=== PATIENT | female | born 1970 | race Caucasian/White ===

== ENCOUNTER 2020-02-08 16:44 | Inpatient (IN) | payer OTHER, SELFPAY ==
[2020-02-08 17:02] VITALS: BP 123/81; PULSE 65; RESP 18; TEMP 36.4; O2SAT 100
[2020-02-08 17:50] VITALS: BP 140/72; PULSE 68; O2SAT 100; BMI 20.7
--- NOTE | 2020-02-08 19:36 | ED_ITS ---
HPI - Psych General Chief Complaint: Psychiatric Symptoms Stated Complaint: crisis Time Seen by Provider: 02/08/20 19:36 Source: patient History of Present Illness HPI Narrative: patient states had suicidal ideations as well as had a recent planned to overdose. Patient states relapsed on alcohol and cocaine over the past weekend and took 4 Ambien however was unsure are unaware when this happened. Patient ER is not drowsy. Denies nausea vomiting diarrhea denies chest pain or abdominal pain Duration: constant Related Data Home Medications Medication Instructions Recorded Confirmed alprazolam 1 mg PO Q6H 02/08/20 02/08/20 baclofen 10 mg PO BID 02/08/20 02/08/20 buspirone 30 mg PO BID 02/08/20 02/08/20 docusate sodium [Stool Softener] 100 mg PO BID 02/08/20 02/08/20 fluoxetine 40 mg PO QAM 02/08/20 02/08/20 lamotrigine 200 mg PO BID 02/08/20 02/08/20 zolpidem 10 mg PO BEDTIME 02/08/20 02/08/20 Allergies Allergy/AdvReac Type Severity Reaction Status Date / Time haloperidol [From HALDOL] Allergy Unknown RASH Verified 02/08/20 17:26 morphine [MORPHINE] Allergy Unknown RASH Verified 02/08/20 20:43 Penicillins [PENICILLINS] Allergy Unknown RASH Verified 02/08/20 20:43 risperidone [From RISPERDAL] Allergy Unknown RASH Verified 02/08/20 20:43 From HALDOL Allergy Unknown RASH Uncoded 01/21/20 17:23 Review of Systems Review of Systems: Constitutional : No Weight loss, No Fever, No Chills, No Night Sweats, No Fatigue, No Malaise ENT/Mouth : No Hearing loss, No Ear Pain, No Nasal Congestion, No Sinus Pain, No Hoarseness, No sore throat, No Rhinorrhea, No Swallowing Difficulty Eyes: No Eye Pain, No Swelling, No Redness, No Foreign Body, No Discharge, No Vision Changes Cardiovascular : No Chest Pain, No SOB, No Dyspnea on Exertion, No Orthopnea, No Edema, No Palpitations Respiratory : No Cough, No Sputum, No Wheezing, No Smoke Exposure, No Dyspnea Gastrointestinal : No Nausea, No Vomiting, No Diarrhea, No Constipation, No abdominal Pain, No Hematochezia, No Melena Genitourinary : no irregular bleeding, No Dysuria, No Urinary Frequency, No Hematuria, No Urinary Incontinence, No Urgency, No Flank Pain, No Urinary Flow Changes, No Hesitancy Musculoskeletal : No joint pain, No Myalgias, No Joint Swelling Skin : No Skin Lesions, No rash Neuro : No Weakness, No Numbness, No Paresthesias, No Loss of Consciousness, No Dizziness, No Headache Psych : No Anxiety/Panic, No Depression, No SI/HI/AH/VH, No Social Issues, Heme/Lymph: No Bruising, No Bleeding,No Lymphadenopathy Endocrine : No Polyuria, No Polydipsia, No Temperature Intolerance FOR[facility], [facility] Past Medical History Medical History Acute Crohn's disease Anxiety Depression Social History Social History Advance Directives: No Advance Directives Information Provided: Yes Physical Exam Vital Signs and I&O and Narrative: Vital Signs and I&O: Vital Signs Temp 97.9 F 02/08/20 21:33 Pulse 82 02/08/20 21:33 Resp 18 02/08/20 21:33 BP 153/83 H 02/08/20 21:33 Pulse Ox 100 02/08/20 21:33 Intake & Output 02/08/20 02/08/20 02/09/20 06:59 18:59 06:59 Weight 54.683 kg Body Mass Index 20.7 vital signs reviewed. Pulse ox 100% room air interpreted by me normal Const: Other: Appearance: Alert. Oriented X3. No acute distress. Eyes: Pupils equal, round and reactive to light. ENT: Pharynx normal. Neck: Normal inspection. Neck supple. CVS: Normal heart rate and rhythm. Pulses normal. Respiratory: No respiratory distress. Breath sounds normal. Abdomen: Soft and nontender. Skin: Skin warm and dry. Normal skin color. Normal skin turgor. Extremities: No lower extremity edema. No lower extremity edema. Neuro: Oriented X 3. No motor deficit. No sensory deficit. Course Course Course Narrative: patient a bed search for crisis MDM - Psych Restraints Face to Face Assessment: Face to Face Assessment: Current Situation: After assessment of the patient, a review of the pertinent medical record and a discussion with nursing staff, I feel the patient requires a restrain intervention. Reaction To: [] Medical Condition: [] Behavioral State: [] Continued Need: [] Lab Data Result diagrams: 02/08/20 20:22 02/08/20 20:22 Labs: Lab Results 02/08/20 02/08/20 02/08/20 Range/Units 20:22 20:22 20:22 WBC 9.5 (4.8-10.8) X10*3/uL RBC 3.88 L (4.20-5.50) X10*6/uL Hgb 9.6 L (12.0-16.0) g/dl Hct 29.9 L (37-47) % MCV 77.1 L (80-98) fL MCH 24.7 L (27.0-33.0) pg MCHC 32.1 (31.0-35.0) g/dl RDW 15.9 (11.0-16.0) % Plt Count 312 (160-400) X10*3/uL MPV 11.5 (9.4-12.3) fL Immature Gran % (Auto) 0.2 (0.0-0.4) % Neut % (Auto) 70.6 (45-73) % Lymph % (Auto) 18.9 L (20-40) % Gaines % (Auto) 8.2 (2-11) % Eos % (Auto) 1.6 (0-4) % Baso % (Auto) 0.5 (0-2) % Neut # (Auto) 6.7 (2.0-8.3) X10*3/uL Lymph # (Auto) 1.8 (1.2-4.9) X10*3/uL Gaines # (Auto) 0.8 (0.1-1.2) X10*3/uL Eos # (Auto) 0.2 (0.0-0.4) X10*3/uL Baso # (Auto) 0.1 (0.0-0.2) X10*3/uL Abs Immat Gran (auto) 0.02 (0.00-0.03) X10*3/uL Absolute Nucleated RBC 0.000 (0.0-0.012) X10*3/uL Nucleated RBC % (auto) 0.0 (0.0-0.2) /100WBC Sodium 137 (135-145) mmol/L Potassium 3.2 L (3.3-5.1) mmol/l Chloride 102 (96-108) mmol/L Carbon Dioxide 27 (22-29) mmol/L Anion Gap 11 L (12-20) BUN 7 L (9-16) mg/dL Creatinine 0.82 (0.5-1.4) mg/dL Estim Creat Clear Calc 71.6 Estimated GFR > 60 Random Glucose 102 (60-115) mg/dL Calcium 8.7 (8.4-10.2) mg/dL Salicylates < 5.0 L (15-30) mg/dL Acetaminophen < 1 (<30) mcg/mL Ethyl Alcohol mg/dL 02/08/20 Range/Units 20:22 WBC (4.8-10.8) X10*3/uL RBC (4.20-5.50) X10*6/uL Hgb (12.0-16.0) g/dl Hct (37-47) % MCV (80-98) fL MCH (27.0-33.0) pg MCHC (31.0-35.0) g/dl RDW (11.0-16.0) % Plt Count (160-400) X10*3/uL MPV (9.4-12.3) fL Immature Gran % (Auto) (0.0-0.4) % Neut % (Auto) (45-73) % Lymph % (Auto) (20-40) % Gaines % (Auto) (2-11) % Eos % (Auto) (0-4) % Baso % (Auto) (0-2) % Neut # (Auto) (2.0-8.3) X10*3/uL Lymph # (Auto) (1.2-4.9) X10*3/uL Gaines # (Auto) (0.1-1.2) X10*3/uL Eos # (Auto) (0.0-0.4) X10*3/uL Baso # (Auto) (0.0-0.2) X10*3/uL Abs Immat Gran (auto) (0.00-0.03) X10*3/uL Absolute Nucleated RBC (0.0-0.012) X10*3/uL Nucleated RBC % (auto) (0.0-0.2) /100WBC Sodium (135-145) mmol/L Potassium (3.3-5.1) mmol/l Chloride (96-108) mmol/L Carbon Dioxide (22-29) mmol/L Anion Gap (12-20) BUN (9-16) mg/dL Creatinine (0.5-1.4) mg/dL Estim Creat Clear Calc Estimated GFR Random Glucose (60-115) mg/dL Calcium (8.4-10.2) mg/dL Salicylates (15-30) mg/dL Acetaminophen (<30) mcg/mL Ethyl Alcohol < 10 mg/dL Discharge Plan Discharge Prescriptions: No Action fluoxetine 40 mg capsule 40 mg PO QAM RF: 0 lamotrigine 200 mg tablet 200 mg PO BID RF: 0 alprazolam 1 mg tablet 1 mg PO Q6H RF: 0 baclofen 10 mg tablet 10 mg PO BID RF: 0 docusate sodium [Stool Softener] 100 mg capsule 100 mg PO BID RF: 0 zolpidem 10 mg tablet 10 mg PO BEDTIME RF: 0 buspirone 15 mg tablet 30 mg PO BID RF: 0
--- NOTE | 2020-02-08 19:49 | PC.NURSE ---
Patient just got seen by provider no new order at this time. Patient in bed calm and quiet in her room. Denied si/hi/avh. Per report patient was seen out in [facility], patient is in-patient bed search and is on section 12. Will continue to monitor.
[2020-02-08 20:28] LABS: MANUAL DIFF FLAG NO
[2020-02-08 20:31] LABS: Basophils Absolute Auto 0.1 X10*3/uL (0.0-0.2); Basophils Percent Auto 0.5 % (0-2); Eosinophils Absolute Auto 0.2 X10*3/uL (0.0-0.4); Eosinophils Percent Auto 1.6 % (0-4); Hematocrit 29.9 % (37-47); Hemoglobin 9.6 g/dl (12.0-16.0); Imm Gran Abs Auto 0.02 X10*3/uL (0.00-0.03); Imm Gran Pct Auto 0.2 % (0.0-0.4); Lymphocytes Absolute Auto 1.8 X10*3/uL (1.2-4.9); Lymphocytes Percent Auto 18.9 % (20-40); Mean Corpuscular HGB Conc 32.1 g/dl (31.0-35.0); Mean Corpuscular Hemoglobin 24.7 pg (27.0-33.0); Mean Corpuscular Volume 77.1 fL (80-98); Mean Platelet Volume 11.5 fL (9.4-12.3); Monocytes Absolute Auto 0.8 X10*3/uL (0.1-1.2); Monocytes Percent Auto 8.2 % (2-11); Neutrophils Absolute Auto 6.7 X10*3/uL (2.0-8.3); Neutrophils Percent Auto 70.6 % (45-73); Platelet Count 312 X10*3/uL (160-400); Red Blood Count 3.88 X10*6/uL (4.20-5.50); Red Cell Distribution Width 15.9 % (11.0-16.0); White Blood Count 9.5 X10*3/uL (4.8-10.8)
[2020-02-08 20:49] LABS: Ethanol < 10 mg/dL
[2020-02-08 20:51] LABS: Anion Gap 11 (12-20); Blood Urea Nitrogen 7 mg/dL (9-16); Calcium 8.7 mg/dL (8.4-10.2); Carbon Dioxide 27 mmol/L (22-29); Chloride 102 mmol/L (96-108); Creatinine Clr Calc Pharmacy 71.6; Estimated Glomerular Filt Rate > 60; Glucose Random 102 mg/dL (60-115); Potassium 3.2 mmol/l (3.3-5.1); Sodium 137 mmol/L (135-145)
[2020-02-08 20:53] LABS: Salicylate < 5.0 mg/dL (15-30)
[2020-02-08] MEDS: ALPRAZolam 0.5 MG TABLET PO (20:58)
[2020-02-08 21:07] LABS: Acetaminophen LAB < 1 mcg/mL (<30)
[2020-02-08 21:33] VITALS: BP 153/83; PULSE 82; RESP 18; TEMP 36.6; O2SAT 100
[2020-02-08] MEDS: Docusate Sodium 100 MG CAPSULE PO (23:05)
[2020-02-08] MEDS: Baclofen 10 MG TABLET PO (23:38)
--- NOTE | 2020-02-08 23:46 | PC.NURSE ---
Patient compliant with her HS PO medication. Denied distress at this time. Out of room for bathroom use and back. Will continue to monitor.
--- NOTE | 2020-02-09 01:39 | PC.NURSE ---
Patient in bed appears sleeping, respiration +/=/non-labored bilaterally. No distress observed/reported. Safety check maintained. Will continue to monitor.
[2020-02-09 02:34] VITALS: BP 132/75; PULSE 78; RESP 16; TEMP 36.4; O2SAT 98
--- NOTE | 2020-02-09 04:44 | PC.NURSE ---
Patient in bed appears sleeping, no distress observed/reported, respiration +/=/non-labored bilaterally. Safety check maintained. Will continue to monitor.
--- NOTE | 2020-02-09 06:29 | PC.NURSE ---
Patient in bed appears sleeping, no distress observed/reported. Respiration +/=/non-labored bilaterally. Will continue to monitor.
--- NOTE | 2020-02-09 06:53 | PC.NURSE ---
Patient just got for bathroom use, provided urine sample for SANTOS, Xanax scheduled at 0400 was administered now to promote patient sleep. Denied distress. will continue to moniro
[2020-02-09 07:55] LABS: Amphetamine Screen Urine Not Detected (Not Detect); Barbiturates, Urine Not Detected (Not Detect); Benzodiazepines Screen Urine POSITIVE (Not Detect); Cannabinoid Screen Urine Not Detected (Not Detect); Cocaine Screen Urine Not Detected (Not Detect); Opiate Screen Urine Not Detected (Not Detect); Phencyclidine Screen Urine Not Detected (Not Detect)
[2020-02-09 08:24] LABS: HCG Quantitative < 2 mIU/mL
[2020-02-09 09:42] VITALS: BP 113/55; PULSE 74; RESP 18; TEMP 36.9; O2SAT 99
--- NOTE | 2020-02-09 10:53 | PC.NURSE ---
Berna from [facility] speaking on phone to pt regarding pts pets at home. pt calm and cooperative
[2020-02-09] MEDS: Docusate Sodium 100 MG CAPSULE PO (11:38)
[2020-02-09] MEDS: FLUoxetine HCl 20 MG CAPSULE 40 MG PO (11:38)
[2020-02-09] MEDS: Baclofen 10 MG TABLET PO (11:38)
--- NOTE | 2020-02-09 14:47 | PC.NURSE ---
Nurse to nurse given to M5
[2020-02-09 14:54] LABS: SARS COV2 PCR INHOUSE Negative (Negative)
[2020-02-09 15:45] VITALS: BP 128/79; PULSE 73; RESP 15; TEMP 36.9; O2SAT 98
--- NOTE | 2020-02-09 16:41 | PC.NURSE ---
PT TRANSFERRED TO M5, CALM AND COOPERATIVE, SECURITY PRESENT TO BRING PT TO M5
--- NOTE | 2020-02-09 18:07 | PC.NURSE ---
AWAITING TRANSFER ORDERS TO M5 TO BE INPUTTED BY ADMITTING MD. FLOOR AWARE. PT LEFT ED AT 1630.
[2020-02-09 20:00] VITALS: BP 117/68; PULSE 78; RESP 18; TEMP 36.4; O2SAT 100
--- NOTE | 2020-02-09 21:24 | PC.ADMIT ---
PT arrived on unit at 16:35. PT is a 49 year old single woman [place] speaking. Presented to M5 from [facility] on a CV status. PT is Covid negative. Tox screen postive for benzo. PT was assessed by [facility] Crisis at her home due to concern over pts' relapse on cocaine and alcohol, misuse of prescription medication, increased depression and resurgence of eating disorder and overall decompensation. PT reportedly had a SI plan to overdose on medication,but denied any SI,AH/VH or pain on admit. DR Polanco called for orders and notified of admission. PT on 15 min safety checks. Pleasant and cooperative on admit. PT had clear thoughts, stable mood. Pt had a dressing change on LT upper shoulder during admit from rotator cuff surgery. Dressing should be assessed and treated daily while on M5.PT has a port access on her RT upper chest only used for medication for her Crohn's disease. PT verbalized she has her sister Delia as a support system; by report pt has a lengthy history of mental health substance use and eating disorder treatments, has a team of providers through [facility] and [facility]. Start treatment plan and monitor for safety
[2020-02-09 22:00] VITALS: BP 127/60; PULSE 72; RESP 18; TEMP 36; O2SAT 98
[2020-02-09] MEDS: Zolpidem Tartrate 5 MG TABLET PO (22:41)
[2020-02-10] MEDS: traZODone HCL 50 MG TABLET PO (00:07)
[2020-02-10] MEDS: hydrOXYzine HCL 25 MG TABLET PO (00:08)
[2020-02-10 05:50] VITALS: BP 142/60; PULSE 58; RESP 16; TEMP 36.8
[2020-02-10] MEDS: FLUoxetine HCl 20 MG CAPSULE 40 MG PO (08:52)
[2020-02-10] MEDS: ALPRAZolam 0.5 MG TABLET 1 MG PO ×3 (08:53→21:22)
[2020-02-10] MEDS: busPIRone HCl 10 MG TABLET 30 MG PO ×2 (08:53→21:22)
[2020-02-10] MEDS: Baclofen 10 MG TABLET PO ×2 (08:54→21:21)
[2020-02-10] MEDS: lamoTRIgine 100 MG TABLET 200 MG PO ×2 (08:55→21:22)
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
[2020-02-10 21:20] LABS: Alanine Aminotransferase 9 U/L (0-31); Albumin Level 3.8 g/dL (3.5-5.0); Alkaline Phosphatase 89 U/L (39-117); Anion Gap 12 (12-20); Aspartate Amino Transferase 13 U/L (5-31); Bilirubin Total 0.2 mg/dL (0.0-1.0); Blood Urea Nitrogen 12 mg/dL (9-16); Calcium 8.8 mg/dL (8.4-10.2); Carbon Dioxide 32 mmol/L (22-29); Chloride 97 mmol/L (96-108); Cholesterol 164 mg/dL; Creatinine Clr Calc Pharmacy 69.1; Estimated Glomerular Filt Rate > 60; Glucose Random 86 mg/dL (60-115); HDL Cholesterol 64 mg/dL; LDL Cholesterol Calculated 78 mg/dl; Potassium 3.5 mmol/l (3.3-5.1); Sodium 137 mmol/L (135-145); Total Protein 7.3 g/dL (6.5-8.0); Triglycerides 114 mg/dL
[2020-02-10] MEDS: Zolpidem Tartrate 5 MG TABLET 10 MG PO (21:22)
[2020-02-10 21:26] LABS: Reflex LDLD? No
[2020-02-10 21:36] VITALS: BP 120/74; PULSE 63; TEMP 36.7
[2020-02-10 21:39] LABS: TSH reflex Free T4 0.91 mIU/mL (0.32-4.0)
--- NOTE | 2020-02-11 | US_ITS ---
EXAMINATION: ULTRASOUND EXTREMITY NONVASCULAR CLINICAL INFORMATION: History of rotator cuff surgery 2019 with lump anterior limb drainage. Evaluate for abscess. COMPARISON: None TECHNIQUE: Grayscale and color imaging of the soft tissues of the left shoulder using a linear and curved transducer FINDINGS: There is a complex collection just deep to the skin in the left shoulder that measures 9.5 x 7.2 x 4.3 cm in dimension. This demonstrates increased vascularity. This has the largest solid-appearing echogenic component. This also has a thin curvilinear echogenic component with dirty shadowing questionable for air. It is difficult to exclude a soft tissue foreign body. IMPRESSION: Complex collection over the left shoulder just deep to the skin measuring 9.5 x 7.2 x 4.3 cm. This has a large solid echogenic component and thin linear echogenic component with dirty shadowing questionable for air. It is difficult to exclude a soft tissue foreign body. Correlation with x-ray or CT scan is recommended.
[2020-02-11] MEDS: traZODone HCL 50 MG TABLET PO ×2 (00:33→23:35)
[2020-02-11] MEDS: hydrOXYzine HCL 25 MG TABLET PO (00:33)
[2020-02-11 07:00] VITALS: BP 121/58; PULSE 63; RESP 14; TEMP 36.3; O2SAT 98; BMI 16.9
[2020-02-11] MEDS: Baclofen 10 MG TABLET PO ×2 (08:43→21:42)
[2020-02-11] MEDS: ALPRAZolam 0.5 MG TABLET 1 MG PO ×4 (08:43→21:42)
[2020-02-11] MEDS: FLUoxetine HCl 20 MG CAPSULE 40 MG PO (08:43)
[2020-02-11] MEDS: busPIRone HCl 10 MG TABLET 30 MG PO ×2 (08:43→21:42)
[2020-02-11] MEDS: lamoTRIgine 100 MG TABLET 200 MG PO ×2 (08:43→21:42)
[2020-02-11 09:24] LABS: Folate 10.6 ng/mL (> or = 4.0); Vitamin B12 211 pg/mL (200-900)
--- NOTE | 2020-02-11 10:33 | P.CONIM_ITS ---
History of Present Illness Data of Consult Service Date: 02/11/20 <MELISSA Gauthier - Last Filed: 02/11/20 11:18> Requesting physician: Artie Vargas <MELISSA Gauthier - Last Filed: 02/11/20 11:18> Primary Care Provider: Sveta Matthew NP <MELISSA Gauthier - Last Filed: 02/11/20 11:18> HPI Reason for consult: Drainage from left shoulder <MELISSA Gauthier - Last Filed: 02/11/20 11:18> This is a 49-year-old female admitted to for management of depression, anxiety and relapse of alcohol and cocaine. She underwent left rotator cuff repair in 2018 and has had several subsequent surgeries since (detailed below). the hospitalists were asked to see her in consultation for drainage of her left shoulder wound. She has had persistent purulent drainage from her left shoulder which has not changed in consistency. She reports ongoing decreased range of motion and pain. She denies any associated fever or chills. she has had daily dressing changes prior to hospitalization by visiting nurses. --Left shoulder infections recently diagnosed with MSSA, s/p 6-week course of cefazolin. She initially underwent left shoulder rotator cuff repair in 02/2019, developed MRSA infection 03/24 which she underwent debridement and hardware removal. She was initially treated with oral Bactrim and rifampin, but then admitted and started on IV vancomycin. She was given 4-week of vancomycin. She underwent rotator cuff repair on 08/17/19, but developed anterior deltoid failure requiring another repair on 11/09/19. She was admitted [place] [facility] [place] to 12/06 with purulent drainage and erythema of the operative site. Wound cultures grew out MSSA and she underwent I&D with removal of all indwelling sutures on 12/03. Operative cultures were negative and then she was on cefazolin at the time. She was ultimately discharged on a planned 6-week course of IV cefazolin to end on 01/14. She returned to hospital with ongoing shoulder pain, no improvement since her discharge. She continued to have drainage which appears to be purulent in nature. The patient did seek a second opinion from a surgeon in [place] who told her that she needed to follow up with ID again. She Underwent orthocentesis, Seen by ID and ortho and cultures have remained negative, completed ANCEF recently, ID recommended vancomycin in the hospital and 2-4 week course of doxycycline while awaiting results of 16 S ribosomal PCR. Rec to follow up with ID clinic and instructed not to take her immunomodulatory agents for crohn's. <MELISSA Gauthier - Last Filed: 02/11/20 11:18> Review of Systems Review of Systems: Yes all other systems are reviewed and are negative <MELISSA Gauthier - Last Filed: 02/11/20 11:18> Constitutional: Constitutional: Denies chills and Denies fever(s) <MELISSA Gauthier - Last Filed: 02/11/20 11:18> Cardiovascular: Cardiovascular: Denies chest pain <MELISSA Gauthier - Last Filed: 02/11/20 11:18> Respiratory: Respiratory: Denies cough <MELISSA Gauthier - Last Filed: 02/11/20 11:18> Gastrointestinal: Gastrointestinal: Denies abdominal pain <MELISSA Gauthier - Last Filed: 02/11/20 11:18> FOR[facility]LY [facility] Medical History: Medical History Acute Crohn's disease Alcohol use disorder Anemia Anorexia nervosa with bulimia Anxiety Cocaine use disorder, mild, abuse Crohn disease Depression Major depressive disorder, recurrent, severe w/o psychotic behavior Major depressive disorder, recurrent, severe with psychotic features PTSD (post-traumatic stress disorder) Shoulder abscess <MELISSA Gauthier - Last Filed: 02/11/20 11:18> Functional capacity: independent ambulation <MELISSA Gauthier - Last Filed: 02/11/20 11:18> Family history: reviewed and not pertinent <MELISSA Gauthier - Last Filed: 02/11/20 11:18> Surgical History: Surgical History S/P left rotator cuff repair <MELISSA Gauthier Last Filed: 02/11/20 11:18> Social History: Social History Household Members: None Housing: Apartment Do you presently have visiting nurse or other home services: Yes ( Yes for my dressing on LT shoulder) Smoking Status: Never smoker Smoked in Last 30 Days: No Use of substances other than those prescribed or required for medical reasons: Yes Substance Use Type: Crack/Cocaine Substance Use Frequency: Occasionally Last Used Substance: Just Prior to Admission Currently Displaying Signs/Symptoms of Drug Intoxication Withdrawal: No Any prior treatment program specific to substance use: Yes ( Treatment center in [facility] ) Have you been hit, kicked, punched, or otherwise hurt by someone within the past year? If so, by whom?: No Do you feel safe in your current relationship?: No Current Relationship Is there a partner from a previous relationship who is making you feel unsafe now?: No Are you made to feel afraid or neglected: No [facility] Practices: [facility] I would like a visit from a auto radio mechanic Advance Directives: Yes ( my sister Delia ) Advance Directives Information Provided: No ( somewhere the information is signed ) Advance Directives on File: No Do you have thoughts of harming others: None Do you have a plan to hurt others: No Plan Recently lost weight without trying: No service: No Sexual orientation: Straight/Heterosexual <MELISSA Gauthier - Last Filed: 02/11/20 11:18> Meds Allergies/Adverse reactions: Allergies Allergy/AdvReac Type Severity Reaction Status Date / Time haloperidol [From HALDOL] Allergy Unknown RASH Verified 02/08/20 17:26 morphine [MORPHINE] Allergy Unknown RASH Verified 02/08/20 20:43 Penicillins [PENICILLINS] Allergy Unknown RASH Verified 02/08/20 20:43 risperidone [From RISPERDAL] Allergy Unknown RASH Verified 02/08/20 20:43 From HALDOL Allergy Unknown RASH Uncoded 01/21/20 17:23 <MELISSA Gauthier - Last Filed: 02/11/20 11:18> Home medications: Home Medications Medication Instructions Recorded Confirmed Type alprazolam 1 mg PO Q6H 02/08/20 02/08/20 History baclofen 10 mg PO BID 02/08/20 02/08/20 History buspirone 30 mg PO BID 02/08/20 02/08/20 History docusate sodium [Stool Softener] 100 mg PO BID 02/08/20 02/08/20 History fluoxetine 40 mg PO QAM 02/08/20 02/08/20 History lamotrigine 200 mg PO BID 02/08/20 02/08/20 History zolpidem 10 mg PO BEDTIME 02/08/20 02/08/20 History <MELISSA Gauthier - Last Filed: 02/11/20 11:18> Physical Exam Vital Signs and Narrative: Vital Signs: Last Vital Signs Temp 97.4 F 02/11/20 07:00 Pulse 63 02/11/20 07:00 Resp 14 02/11/20 07:00 BP 121/58 L 02/11/20 07:00 Pulse Ox 98 02/11/20 07:00 Body Mass Index 16.9 <MELISSA Gauthier - Last Filed: 02/11/20 11:18> Const: Nutritional Appearance: well nourished <MELISSA Gauthier Last Filed: 02/11/20 11:18> Orientation/consciousness: patient oriented x3 <MELISSA Gauthier - Last Filed: 02/11/20 11:18> HENMT: Head: Yes normocephalic and Yes atraumatic <MELISSA Gauthier - Last Filed: 02/11/20 11:18> Eyes: Sclerae: sclerae normal <MELISSA Gauthier - Last Filed: 02/11/20 11:18> Resp: Effort & Inspection: normal respiratory effort and no respiratory distress <MELISSA Gauthier - Last Filed: 02/11/20 11:18> Auscultation: clear to auscultation bilaterally <MELISSA Gauthier Last Filed: 02/11/20 11:18> Cardio: Rate: regular rate <MELISSA Gauthier Last Filed: 02/11/20 11:18> Rhythm: regular rhythm <MELISSA Gauthier - Last Filed: 02/11/20 11:18> Neuro: General: patient oriented x3 <MELISSA Gauthier Last Filed: 02/11/20 11:18> Cranial nerves: Yes CN's II-XII intact bilaterally and Yes Bilaterally intact EOM present <MELISSA Gauthier - Last Filed: 02/11/20 11:18> Extrem: Left upper extremity: shoulder/upper arm (area of fluctuance) Details: abnormal to inspection (healing incision left shoulder, no erythema, no drainage expressed), tenderness and abnormal ROM; no unsual warmth <MELISSA Gauthier - Last Filed: 02/11/20 11:18> Results Labs Labs: Laboratory Tests 02/08/20 02/08/20 02/08/20 20:22 20:22 20:22 WBC 9.5 RBC 3.88 L Hgb 9.6 L Hct 29.9 L MCV 77.1 L MCH 24.7 L MCHC 32.1 RDW 15.9 Plt Count 312 MPV 11.5 Immature Gran % (Auto) 0.2 Neut % (Auto) 70.6 Lymph % (Auto) 18.9 L [place] % (Auto) 8.2 Eos % (Auto) 1.6 Baso % (Auto) 0.5 Neut # (Auto) 6.7 Lymph # (Auto) 1.8 [place] # (Auto) 0.8 Eos # (Auto) 0.2 Baso # (Auto) 0.1 Abs Immat Gran (auto) 0.02 Absolute Nucleated RBC 0.000 Nucleated RBC % (auto) 0.0 Sodium 137 Potassium 3.2 L Chloride 102 Carbon Dioxide 27 Anion Gap 11 L BUN 7 L Creatinine 0.82 Estim Creat Clear Calc 71.6 Estimated GFR > 60 Random Glucose 102 Calcium 8.7 Total Bilirubin AST ALT Alkaline Phosphatase Total Protein Albumin Triglycerides Cholesterol LDL Cholesterol, Calc HDL Cholesterol Vitamin B12 Folate TSH Beta HCG, Quant Salicylates < 5.0 L Urine Opiates Screen Acetaminophen < 1 Ur Barbiturates Screen Ur Phencyclidine Scrn Ur Amphetamines Screen U Benzodiazepines Scrn Urine Cocaine Screen U Marijuana (THC) Screen Ethyl Alcohol Coronavirus (PCR) 02/08/20 02/09/20 02/09/20 20:22 07:09 07:32 WBC RBC Hgb Hct MCV MCH MCHC RDW Plt Count MPV Immature Gran % (Auto) Neut % (Auto) Lymph % (Auto) [place] % (Auto) Eos % (Auto) Baso % (Auto) Neut # (Auto) Lymph # (Auto) [place] # (Auto) Eos # (Auto) Baso # (Auto) Abs Immat Gran (auto) Absolute Nucleated RBC Nucleated RBC % (auto) Sodium Potassium Chloride Carbon Dioxide Anion Gap BUN Creatinine Estim Creat Clear Calc Estimated GFR Random Glucose Calcium Total Bilirubin AST ALT Alkaline Phosphatase Total Protein Albumin Triglycerides Cholesterol LDL Cholesterol, Calc HDL Cholesterol Vitamin B12 Folate TSH Beta HCG, Quant < 2 Salicylates Urine Opiates Screen Not Detected Acetaminophen Ur Barbiturates Screen Not Detected Ur Phencyclidine Scrn Not Detected Ur Amphetamines Screen Not Detected U Benzodiazepines Scrn POSITIVE H Urine Cocaine Screen Not Detected U Marijuana (THC) Screen Not Detected Ethyl Alcohol < 10 Coronavirus (PCR) 02/09/20 02/10/20 02/10/20 13:10 20:22 20:22 WBC RBC Hgb Hct MCV MCH MCHC RDW Plt Count MPV Immature Gran % (Auto) Neut % (Auto) Lymph % (Auto) [place] % (Auto) Eos % (Auto) Baso % (Auto) Neut # (Auto) Lymph # (Auto) [place] # (Auto) Eos # (Auto) Baso # (Auto) Abs Immat Gran (auto) Absolute Nucleated RBC Nucleated RBC % (auto) Sodium 137 Potassium 3.5 Chloride 97 Carbon Dioxide 32 H Anion Gap 12 BUN 12 D Creatinine 0.85 Estim Creat Clear Calc 69.1 Estimated GFR > 60 Random Glucose 86 Calcium 8.8 Total Bilirubin 0.2 AST 13 ALT 9 Alkaline Phosphatase 89 Total Protein 7.3 Albumin 3.8 Triglycerides 114 Cholesterol 164 LDL Cholesterol, Calc 78 HDL Cholesterol 64 Vitamin B12 211 Folate 10.6 TSH 0.91 Beta HCG, Quant Salicylates Urine Opiates Screen Acetaminophen Ur Barbiturates Screen Ur Phencyclidine Scrn Ur Amphetamines Screen U Benzodiazepines Scrn Urine Cocaine Screen U Marijuana (THC) Screen Ethyl Alcohol Coronavirus (PCR) Negative <MELISSA Gauthier - Last Filed: 02/11/20 11:18> Assessment and Plan (1) S/P left rotator cuff repair: Status: Acute <MELISSA Gauthier - Last Filed: 02/11/20 11:18> this is a 49-year-old female admitted to for management of depression, anxiety and relapse of alcohol and cocaine. s/p left rotator cuff repair with h/o MSSA infection with chronic purulent tari inage chronic since recent surgery and seems unchanged. has completed antibiotics. no leukocytosis or fever remicaide (for Crohn's)has been on hold overall wound appears to be healing well with no surrounding erythema. There was purulence drainage on her bandage which she states has been persistent since recent surgery. No drainage was able to be expressed from the wound. however there is an area of fluctuance on the top of her shoulder. the patient states that this is not new. likely does not represent abscess given lack of white count, fever or erythema. However given h/o recurrent infection will obtain soft tissue ultrasound to evaluate. further management based on results. pain management with Tylenol as she would like to avoid narcotics and NSAIDs if possible. thank you for allowing us to participate in the care of this patient. This case was discussed with Dr. Randolph <MELISSA Gauthier - Last Filed: 02/11/20 11:18>
[2020-02-11] MEDS: Acetaminophen 325 MG TABLET 650 MG PO (10:40)
--- NOTE | 2020-02-11 10:48 | HO.PSYCHPN ---
Subjective Subjective Reason For Visit: patient admitted increasingly depressed OD Subjective Notes: Conditional Voluntary Interim History: Pt feels quite depressed anxious depressed . having belly pain diarrehea empty difficult relationship with mother feels shame over relapse ruminating on loss of father has been off remicade agreeable to taking Abilify again asking for Benadryl IM that she states is helpful for pain Mental Status Exam Mental Status Exam Narrative: patient id isolative sad depressed somewhat disheveled Patient Appearance: Disheveled Patient Orientation: Person, Place and Time Level of Consciousness: Awake Patient Behavior: Appropriate and Good Eye Contact Mood Description: Anxious and Apprehensive Affect Description: Depressed, Anxious, Blunted and Sad Patient Cognition Impaired: No Ability to Follow Directions: Good Speech Pattern: Clear Memory Description: Recent Impaired ( has blackout) Hallucinations: None Delusions: Not Present Thought Process: Intact Thought Content: positive for Goal Oriented Depressive Symptoms: Increased Anxiety, Insomnia, Increased Irritability, Crying Spells, Feelings of Worthlessness, Hopelessness, Feelings of Guilt, Increased Fatigue and Thoughts of /Suicide ( denies active suicidal thoughts) Judgement: Fair Judgement and Insight: patient apparently has been misusing her prescribed medication not being fully honest with her outpatient team Diagnostics Vital Signs (24Hr): Vital Signs - 24 hr 02/10/20 21:36 02/11/20 07:00 Temperature 98.0 F 97.4 F Pulse Rate 63 63 Respiratory Rate 14 Blood Pressure 120/74 121/58 L Pulse Oximetry 98 Body Mass Index 16.9 Labs Results: 02/08/20 20:22 02/10/20 20:22 Labs: Laboratory Results - last 48 hr 02/09/20 02/10/20 02/10/20 13:10 20:22 20:22 Sodium 137 Potassium 3.5 Chloride 97 Carbon Dioxide 32 H Anion Gap 12 BUN 12 D Creatinine 0.85 Estim Creat Clear Calc 69.1 Estimated GFR > 60 Random Glucose 86 Calcium 8.8 Total Bilirubin 0.2 AST 13 ALT 9 Alkaline Phosphatase 89 Total Protein 7.3 Albumin 3.8 Triglycerides 114 Cholesterol 164 LDL Cholesterol, Calc 78 HDL Cholesterol 64 Vitamin B12 211 Folate 10.6 TSH 0.91 Coronavirus (PCR) Negative Medications Medications Current Medications Generic Name Dose Route Start Last Admin Trade Name Freq PRN Reason Stop Dose Admin Acetaminophen 650 mg 02/09/20 21:51 02/11/20 10:40 Acetaminophen 325 Mg Tablet PO 650 mg Q6H PRN Administration Headache/Pain Mild Scale (1-3) Al Hydroxide/Mg Hydroxide 30 ml 02/09/20 21:51 Magnesium Hydrox/Alum Hydrox 30 Ml Oral.Susp PO Q6H PRN Heartburn/Nausea Alprazolam 1 mg 02/10/20 21:00 02/11/20 08:43 Alprazolam 0.5 Mg Tablet PO 1 mg TID MARGARITA Administration Baclofen 10 mg 02/08/20 23:30 02/11/20 08:43 Baclofen 10 Mg Tablet PO 10 mg BID MARGARITA Administration Buspirone HCl 30 mg 02/10/20 09:00 02/11/20 08:43 Buspirone Hcl 10 Mg Tablet PO 30 mg BID MARGARITA Administration Docusate Sodium 100 mg 02/09/20 09:00 02/11/20 08:43 Docusate Sodium 100 Mg Capsule PO Not Given BID MARGARITA Fluoxetine HCl 40 mg 02/09/20 09:00 02/11/20 08:43 Fluoxetine Hcl 20 Mg Capsule PO 40 mg DAILY MARGARITA Administration Hydroxyzine HCl 25 mg 02/09/20 21:51 02/11/20 00:33 Hydroxyzine Hcl 25 Mg Tablet PO 25 mg BEDTIME PRN Administration Anxiety Lamotrigine 200 mg 02/10/20 09:00 02/11/20 08:43 Lamotrigine 100 Mg Tablet PO 200 mg BID MARGARITA Administration Magnesium Hydroxide 30 ml 02/09/20 21:51 Milk Of Magnesia 30 Ml Oral.Susp PO DAILY PRN Constipation Trazodone HCl 50 mg 02/09/20 21:51 02/11/20 00:33 Trazodone Hcl 50 Mg Tablet PO 50 mg BEDTIME PRN Administration Insomnia Zolpidem Tartrate 10 mg 02/10/20 21:00 02/10/20 21:22 Zolpidem Tartrate 5 Mg Tablet PO 10 mg BEDTIME MARGARITA Administration Allergies Allergies Allergy/AdvReac Type Severity Reaction Status Date / Time haloperidol [From HALDOL] Allergy Unknown RASH Verified 02/08/20 17:26 morphine [MORPHINE] Allergy Unknown RASH Verified 02/08/20 20:43 Penicillins [PENICILLINS] Allergy Unknown RASH Verified 02/08/20 20:43 risperidone [From RISPERDAL] Allergy Unknown RASH Verified 02/08/20 20:43 From HALDOL Allergy Unknown RASH Uncoded 01/21/20 17:23 Assessment & Plan Assessment & Plan (1) S/P left rotator cuff repair: Status: Acute Code(s): Z98.890 - Other specified postprocedural states (2) PTSD (post-traumatic stress disorder): Status: Acute Code(s): F43.10 - Post-traumatic stress disorder, unspecified (3) Cocaine use disorder, mild, abuse: Status: Acute Code(s): F14.10 - Cocaine abuse, uncomplicated (4) Alcohol use disorder: Status: Acute (5) Anorexia nervosa with bulimia: Status: Acute Code(s): F50.02 - Anorexia nervosa, binge eating/purging type (6) Crohn disease: Status: Acute Code(s): K50.90 - Crohn's disease, unspecified, without complications (7) Major depression: Qualifiers: Active/Remission status: currently active Status: Acute Code(s): F32.9 - Major depressive disorder, single episode, unspecified Assessment and Plan: patient admitted to Psychiatry secondary to depression and in the context of relapse with substance abuse. Patient agreeable to restarting Abilify 2 mg increase as tolerated. Continue Prozac and BuSpar. Patient demoralized medical consultation reviewed no acute findings noted. Patient complaining of GI symptoms abdominal pain diarrhea contributing to depression. She has been S to put her immune modulating agents for Crohn's disease on hold medical consult reviewed Greater than 50% of the session was spent on counseling and/or coordination of care
[2020-02-11 13:00] VITALS: BP 114/73; PULSE 75; TEMP 36.1
[2020-02-11] MEDS: Flu Vacc QS2020-21(6mos up)/PF 0.5 ML SYRINGE IM (15:28)
[2020-02-11] MEDS: ARIPiprazole 2 MG TABLET PO (17:32)
[2020-02-11 20:37] VITALS: BP 109/73; PULSE 75; TEMP 36.5
[2020-02-11] MEDS: Zolpidem Tartrate 5 MG TABLET 10 MG PO (21:43)
[2020-02-11] MEDS: diphenhydrAMINE HCL 50 MG/ML VIAL IM (21:55)
--- NOTE | 2020-02-12 | XR_ITS ---
EXAMINATION: XR SHOULDER, LEFT CLINICAL INFORMATION: Left shoulder pain and abscess COMPARISON: None TECHNIQUE: AP and Y views of the left shoulder. FINDINGS: No fracture or dislocation is seen. There are postsurgical changes following resection of the distal clavicle. There is osteopenia and question permeative changes of the acromion and greater tuberosity of the humeral head. There is overlying soft tissue swelling. On the AP view there is a 7 cm linear density that projects over the left chest/upper lobe region. This is not appreciated on the Y view. It is uncertain whether this could represent a foreign body in the chest. IMPRESSION: Postsurgical change following resection of the distal clavicle. Osteopenia and question permeative changes of the acromion and greater tuberosity. Osteomyelitis should be excluded. There is adjacent soft tissue swelling. Question foreign body in the chest seen on one view. Follow-up chest x-ray is recommended. Findings will be communicated by the [facility] work flow director of intelligence Tatum Gordon.
[2020-02-12 06:07] VITALS: BP 103/59; PULSE 96; RESP 16; TEMP 36; O2SAT 100
[2020-02-12] MEDS: diphenhydrAMINE HCL 50 MG/ML VIAL IM ×2 (06:09→20:39)
[2020-02-12] MEDS: ALPRAZolam 0.5 MG TABLET 1 MG PO ×4 (08:51→20:35)
[2020-02-12] MEDS: ARIPiprazole 2 MG TABLET PO (08:51)
[2020-02-12] MEDS: busPIRone HCl 10 MG TABLET 30 MG PO ×2 (08:51→20:35)
[2020-02-12] MEDS: Baclofen 10 MG TABLET PO ×2 (08:51→20:35)
[2020-02-12] MEDS: lamoTRIgine 100 MG TABLET 200 MG PO ×2 (08:51→20:35)
[2020-02-12] MEDS: FLUoxetine HCl 20 MG CAPSULE 40 MG PO (08:51)
[2020-02-12 13:00] VITALS: BP 119/62; PULSE 82
--- NOTE | 2020-02-12 13:09 | HO.PHPPROGNO ---
Subjective Subjective Reason For Visit: patient admitted increasingly depressed OD Diagnostics Vital Signs (24Hr): Vital Signs - 24 hr 02/11/20 20:37 02/12/20 06:07 Temperature 97.7 F 96.8 F Pulse Rate 75 96 Respiratory Rate 16 Blood Pressure 109/73 103/59 L Pulse Oximetry 100 Body Mass Index 16.9 Labs Results: 02/08/20 20:22 02/10/20 20:22 Labs: Laboratory Results - last 48 hr 02/10/20 02/10/20 20:22 20:22 Sodium 137 Potassium 3.5 Chloride 97 Carbon Dioxide 32 H Anion Gap 12 BUN 12 D Creatinine 0.85 Estim Creat Clear Calc 69.1 Estimated GFR > 60 Random Glucose 86 Calcium 8.8 Total Bilirubin 0.2 AST 13 ALT 9 Alkaline Phosphatase 89 Total Protein 7.3 Albumin 3.8 Triglycerides 114 Cholesterol 164 LDL Cholesterol, Calc 78 HDL Cholesterol 64 Vitamin B12 211 Folate 10.6 TSH 0.91 Assessment & Plan Certification I certify that partial hospital treatment is medically necessary due to the symptoms and problems resulting from the patient's mental illness and the failure to treat the patient at the partial hospital level of care would likely result in the patient requiring inpatient psychiatric care which could not be prevented at a less intensive level of care. Greater than 50% of the session was spent on counseling and/or coordination of care Discharge Plan Discharge Discharge Medications: No Action fluoxetine 40 mg capsule 40 mg PO QAM RF: 0 lamotrigine 200 mg tablet 200 mg PO BID RF: 0 alprazolam 1 mg tablet 1 mg PO Q6H RF: 0 baclofen 10 mg tablet 10 mg PO BID RF: 0 docusate sodium [Stool Softener] 100 mg capsule 100 mg PO BID RF: 0 zolpidem 10 mg tablet 10 mg PO BEDTIME RF: 0 buspirone 15 mg tablet 30 mg PO BID RF: 0
--- NOTE | 2020-02-12 16:02 | P.CONOP_ITS ---
History of Present Illness HPI Consult date: 02/12/20 Requesting physician: Artie Vargas Chief complaint: patient admitted increasingly depressed OD Narrative: Ms. Kearney is a 49 yo female who presented to the ED for mgmnt of depression/anxiety and susbstance abuse. She was admitted to for further evaluation and treatment. In the meantime, she is also suffering from chronic left shoulder drainage. She is s/p LT shoulder RTC repair in 02/[address] Rodriguez from [facility]. 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 She had an extensive course of PO and IV abx, most recent dating to [facility] within the last 4 weeks. She has been followed by [facility], Gram stain from 01/29/2020 negative, no organism growth, Joint fluid analysis from 02/01/2020, negative growth. She continues to have limited ROM, pain and drainage. She is also immunocompromised from chronic Chron's and steroid use. Review of Systems Review of Systems: Yes all other systems are reviewed and are negative PMFSH Past Medical History Medical History Acute Crohn's disease Alcohol use disorder Anorexia nervosa with bulimia Anxiety Cocaine use disorder, mild, abuse Crohn disease Depression PTSD (post-traumatic stress disorder) Shoulder abscess Functional capacity: independent ambulation Family History Family history: reviewed and not pertinent Surgical History Surgical History S/P left rotator cuff repair Social History Social History Household Members: None Housing: Apartment Do you presently have visiting nurse or other home services: Yes ( Yes for my dressing on LT shoulder) Smoking Status: Never smoker Smoked in Last 30 Days: No Use of substances other than those prescribed or required for medical reasons: Yes Substance Use Type: Crack/Cocaine Substance Use Frequency: Occasionally Last Used Substance: Just Prior to Admission Currently Displaying Signs/Symptoms of Drug Intoxication Withdrawal: No Any prior treatment program specific to substance use: Yes ( Treatment center in [facility] ) Have you been hit, kicked, punched, or otherwise hurt by someone within the past year? If so, by whom?: No Do you feel safe in your current relationship?: No Current Relationship Is there a partner from a previous relationship who is making you feel unsafe now?: No Are you made to feel afraid or neglected: No [facility] Practices: Jainism I would like a visit from a lockstitch zipper setter Advance Directives: Yes ( my sister Delia ) Advance Directives Information Provided: No ( somewhere the information is signed ) Advance Directives on File: No Do you have thoughts of harming others: None Do you have a plan to hurt others: No Plan Recently lost weight without trying: No service: No Sexual orientation: Straight/Heterosexual Meds Allergies Allergy/AdvReac Type Severity Reaction Status Date / Time haloperidol [From HALDOL] Allergy Unknown RASH Verified 02/08/20 17:26 morphine [MORPHINE] Allergy Unknown RASH Verified 02/08/20 20:43 Penicillins [PENICILLINS] Allergy Unknown RASH Verified 02/08/20 20:43 risperidone [From RISPERDAL] Allergy Unknown RASH Verified 02/08/20 20:43 From HALDOL Allergy Unknown RASH Uncoded 01/21/20 17:23 Home Medications Medication Instructions Recorded Confirmed Type alprazolam 1 mg PO Q6H 02/08/20 02/08/20 History baclofen 10 mg PO BID 02/08/20 02/08/20 History buspirone 30 mg PO BID 02/08/20 02/08/20 History docusate sodium [Stool Softener] 100 mg PO BID 02/08/20 02/08/20 History fluoxetine 40 mg PO QAM 02/08/20 02/08/20 History lamotrigine 200 mg PO BID 02/08/20 02/08/20 History zolpidem 10 mg PO BEDTIME 02/08/20 02/08/20 History Physical Exam Vital Signs and I&O and Narrative: Vital Signs and I&O: Vital Signs Temp 96.8 F 02/12/20 06:07 Pulse 82 02/12/20 13:00 Resp 16 02/12/20 06:07 BP 119/62 02/12/20 13:00 Pulse Ox 100 02/12/20 06:07 Intake & Output 02/11/20 02/12/20 02/12/20 18:59 06:59 18:59 Weight 98 lb 8 oz Body Mass Index 16.9 Extrem: Other: Left shoulder: There is a small, pin hole area on the top of the shoulder near the AC joint . There is no open wound. There is serous drainage. No purulance or fluctulance. No tenderness to palpation. Sensation intact. Results Labs Result Diagrams: 02/08/20 20:22 02/10/20 20:22 Labs: H & H 02/08/20 Range/Units 20:22 Hgb 9.6 L (12.0-16.0) g/dl Hct 29.9 L (37-47) % All other labs normal. Diagnostic results Shoulder x-ray: other (Post surgical changes noted along the distal clavicle. Osteopenia and question permeative changes of the ac joint and greater tuberosity. Osteomyelitis should be excluded. There is adjacent soft tissue swelling. ) Assessment and Plan (1) Wound of left shoulder: Qualifiers: Encounter type: initial encounter Qualified Code(s): S41.002A - Unspecified open wound of left shoulder, initial encounter Status: Chronic I discussed the case with Dr. Vergara and given her most recent negative cultures/studies, this may not be an active shoulder infection. 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 It is possible the fluid is the result of a matty formation from her chronic RTC arthropathy. We will hold off on abx at this time and treat her symptomatically with sling, NSAIDs and Penedlum exercises. We will reeval for further recommendations.
[2020-02-12 18:00] VITALS: BP 93/57; PULSE 73; TEMP 36.1
[2020-02-12] MEDS: Zolpidem Tartrate 5 MG TABLET 10 MG PO (20:35)
[2020-02-12] MEDS: Cyanocobalamin (Vitamin B-12) 1,000 MCG/ML VIAL 1000 MCG IM (20:38)
--- NOTE | 2020-02-12 22:16 | HO.PSYCHPN ---
Subjective Subjective Reason For Visit: patient admitted increasingly depressed OD Subjective Notes: Conditional Voluntary Interim History: patient depressed withdrawn tried to pump her alprazolam this morning. Please stated she felt she did needed she can be the basis of guarded denies that she was trying to pranav her medication for self harm we had a discussion regarding this agreeable to visiting nurse and lockbox when discharged complains of severe depression hopelessness denies active self-harm Medication Compliance: Intermittent Attending Groups: Intermittent Review of Systems Acute medical concerns: Yes Crohn's disease complains of diarrhea and abdominal pain GI consult ordered mood had been on Imuran held because of recent shoulder infection status post surgery Medical Review of Systems: unchanged Mental Status Exam Mental Status Exam Narrative: patient with quite constricted affect complains of severe depression could not really give a good explanation for why she tried to hide her medication this morning did respond to redirection and agree to recommit to not being a basis of head being more forthright denies active self-harm Patient Appearance: Disheveled Patient Orientation: Person, Place and Time Level of Consciousness: Awake Patient Behavior: Appropriate and Good Eye Contact Mood Description: Anxious and Apprehensive Affect Description: Depressed, Anxious, Blunted and Sad Patient Cognition Impaired: No Ability to Follow Directions: Good Speech Pattern: Clear Memory Description: Recent Impaired ( has blackout) Diagnostics Vital Signs (24Hr): Vital Signs - 24 hr 02/12/20 06:07 02/12/20 13:00 02/12/20 18:00 Temperature 96.8 F 96.9 F Pulse Rate 96 82 73 Respiratory Rate 16 Blood Pressure 103/59 L 119/62 93/57 L Pulse Oximetry 100 Body Mass Index 16.9 Labs Results: 02/08/20 20:22 02/10/20 20:22 Labs: Laboratory Results - last 48 hr 02/10/20 20:22 Vitamin B12 211 Folate 10.6 Medications Medications Current Medications Generic Name Dose Route Start Last Admin Trade Name Freq PRN Reason Stop Dose Admin Acetaminophen 650 mg 02/09/20 21:51 02/11/20 10:40 Acetaminophen 325 Mg Tablet PO 650 mg Q6H PRN Administration Headache/Pain Mild Scale (1-3) Al Hydroxide/Mg Hydroxide 30 ml 02/09/20 21:51 Magnesium Hydrox/Alum Hydrox 30 Ml Oral.Susp PO Q6H PRN Heartburn/Nausea Alprazolam 1 mg 02/10/20 21:00 02/12/20 20:35 Alprazolam 0.5 Mg Tablet PO 1 mg TID MARGARITA Administration Alprazolam 1 mg 02/11/20 20:56 02/12/20 13:30 Alprazolam 0.5 Mg Tablet PO 1 mg DAILY PRN Administration Anxiety Aripiprazole 2 mg 02/12/20 09:00 02/12/20 08:51 Aripiprazole 2 Mg Tablet PO 2 mg DAILY MARGARITA Administration Baclofen 10 mg 02/08/20 23:30 02/12/20 20:35 Baclofen 10 Mg Tablet PO 10 mg BID MARGARITA Administration Buspirone HCl 30 mg 02/10/20 09:00 02/12/20 20:35 Buspirone Hcl 10 Mg Tablet PO 30 mg BID MARGARITA Administration Cyanocobalamin 1,000 mcg 02/12/20 15:00 02/12/20 20:38 Cyanocobalamin (Vitamin B-12) 1,000 Mcg/Ml Vial IM 1,000 mcg Q7D MARGARITA Administration Diphenhydramine HCl 50 mg 02/11/20 20:17 02/12/20 20:39 Diphenhydramine Hcl 50 Mg/Ml Vial IM 50 mg BID PRN Administration Pain, Moderate (Pain Scale 4-6 Docusate Sodium 100 mg 02/09/20 09:00 02/12/20 20:38 Docusate Sodium 100 Mg Capsule PO Not Given BID MARGARITA Fluoxetine HCl 40 mg 02/09/20 09:00 02/12/20 08:51 Fluoxetine Hcl 20 Mg Capsule PO 40 mg DAILY MARGARITA Administration Lamotrigine 200 mg 02/10/20 09:00 02/12/20 20:35 Lamotrigine 100 Mg Tablet PO 200 mg BID MARGARITA Administration Magnesium Hydroxide 30 ml 02/09/20 21:51 Milk Of Magnesia 30 Ml Oral.Susp PO DAILY PRN Constipation Trazodone HCl 50 mg 02/09/20 21:51 02/11/20 23:35 Trazodone Hcl 50 Mg Tablet PO 50 mg BEDTIME PRN Administration Insomnia Zolpidem Tartrate 10 mg 02/10/20 21:00 02/12/20 20:35 Zolpidem Tartrate 5 Mg Tablet PO 10 mg BEDTIME MARGARITA Administration Allergies Allergies Allergy/AdvReac Type Severity Reaction Status Date / Time haloperidol [From HALDOL] Allergy Unknown RASH Verified 02/08/20 17:26 morphine [MORPHINE] Allergy Unknown RASH Verified 02/08/20 20:43 Penicillins [PENICILLINS] Allergy Unknown RASH Verified 02/08/20 20:43 risperidone [From RISPERDAL] Allergy Unknown RASH Verified 02/08/20 20:43 From HALDOL Allergy Unknown RASH Uncoded 01/21/20 17:23 Assessment & Plan Assessment & Plan (1) Wound of left shoulder: Qualifiers: Encounter type: initial encounter Qualified Code(s): S41.002A - Unspecified open wound of left shoulder, initial encounter Status: Chronic Code(s): S41.002A - Unspecified open wound of left shoulder, initial encounter Assessment and Plan: I discussed the case with Dr. Vergara and given her most recent negative cultures/studies, this may not be an active shoulder infection. 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 It is possible the fluid is the result of a matty formation from her chronic RTC arthropathy. We will hold off on abx at this time and treat her symptomatically with sling, NSAIDs and Penedlum exercises. We will reeval for further recommendations. above from orthopedic consult (2) Major depressive disorder, recurrent, severe with psychotic features: Status: Acute Code(s): F33.3 - Major depressive disorder, recurrent, severe with psychotic symptoms Assessment and Plan: monitor safety taper fluoxetine start Viibryd increase Abilify patient had been prescribed this but was not taking. Encouraged patient to be forthcoming and honest. Continue Lamictal continue BuSpar Greater than 50% of the session was spent on counseling and/or coordination of care
[2020-02-12] MEDS: traZODone HCL 50 MG TABLET PO (22:22)
[2020-02-13] MEDS: traZODone HCL 50 MG TABLET PO ×3 (00:55→23:01)
[2020-02-13] MEDS: diphenhydrAMINE HCL 50 MG/ML VIAL IM ×2 (00:56→21:17)
[2020-02-13] MEDS: ALPRAZolam 0.5 MG TABLET 1 MG PO ×4 (05:06→21:18)
[2020-02-13] MEDS: lamoTRIgine 100 MG TABLET 200 MG PO ×2 (08:46→21:18)
[2020-02-13] MEDS: Vilazodone HCL 10 MG TABLET PO (08:47)
[2020-02-13] MEDS: ARIPiprazole 5 MG TABLET PO (08:47)
[2020-02-13] MEDS: FLUoxetine HCl 20 MG CAPSULE PO (08:48)
[2020-02-13] MEDS: busPIRone HCl 10 MG TABLET 30 MG PO ×2 (08:49→21:19)
[2020-02-13] MEDS: Baclofen 10 MG TABLET PO ×2 (08:51→21:21)
[2020-02-13 09:00] VITALS: BP 113/60; PULSE 61; TEMP 36.3
--- NOTE | 2020-02-13 14:35 | PM.GICN ---
History of Present Illness Data of Consult Service Date: 02/13/20 Requesting physician: Artie Vargas Primary Care Provider: Sveta Matthew NP HPI Reason for consult: Requested assistance in management of patient with known Crohn's disease.. 49 yo female who is currently on the [facility] service. She has had a hx of Crohn's disease since age 22. She is followed by Dr. Veras @ [facility]. She has been stable on Remicade infusions half-way. She did have a hospitalization about 3 years ago related to abdominal pain: ? flare. She did not go to her last infusion about a week ago due to ? of needing to stop her REMICADE. She did not seem to have discussed this with [facility]. There was, apparently, some ? as to whether the Remicade was interfering with the clearance of her shoulder infection. (This probably needs to be clarified.) She is now concerned about diarrhea but she is inconsistent with her description of the frequency. She has been on a lot of antibx for the shoulder infection. She does not recall ever being told that she had C.Dif infection. She says her Crohn's is limited to her colon. She thinks her last colonoscopy was 2 years ago. She thinks the findings were consistent with her disease being under good control. She says she has lost about 10 pounds. Her appetite has not been good. She does use occ Cocaine. She did drink excessively for ? a day before she came in. She struggles with depression. She has a low BMI. Review of Systems Constitutional: Constitutional: Reports difficulty sleeping, Reports lethargy, Reports malaise, Reports poor appetite and Reports weight loss Cardiovascular: Cardiovascular: Reports no additional cardiovascular complaints and Denies dyspnea Respiratory: Respiratory: Reports no additional respiratory complaints, Denies cough and Denies dyspnea Gastrointestinal: Gastrointestinal: Denies abdominal pain, Denies hematochezia, Reports diarrhea (? increased frequency of stools 4-6/day) and Reports loose stools Comments: When asked about baseline it did not seem to be less. Psychiatric: Psychiatric: Reports depression and Reports other (Father in August of this year--this has added to her sadness.) Hematologic/Lymphatic: Comments: Tells me she is followed @ times by Dr. Dickey. She can need periodic iron infusions. [facility] Past Medical History Medical History (Updated 02/13/20 @ 18:50 by Lynda Diehl MD) Acute Crohn's disease Alcohol use disorder Anemia Anorexia nervosa with bulimia Anxiety Cocaine use disorder, mild, abuse Crohn disease Depression PTSD (post-traumatic stress disorder) Shoulder abscess Functional capacity: independent ambulation Family History Family history: reviewed and not pertinent Surgical History Surgical History S/P left rotator cuff repair Social History Social History Household Members: None Housing: Apartment Do you presently have visiting nurse or other home services: Yes ( Yes for my dressing on LT shoulder) Smoking Status: Never smoker Smoked in Last 30 Days: No Use of substances other than those prescribed or required for medical reasons: Yes Substance Use Type: Crack/Cocaine Substance Use Frequency: Occasionally Last Used Substance: Just Prior to Admission Currently Displaying Signs/Symptoms of Drug Intoxication Withdrawal: No Any prior treatment program specific to substance use: Yes ( Treatment center in [facility] ) Have you been hit, kicked, punched, or otherwise hurt by someone within the past year? If so, by whom?: No Do you feel safe in your current relationship?: No Current Relationship Is there a partner from a previous relationship who is making you feel unsafe now?: No Are you made to feel afraid or neglected: No [facility] Practices: Bahai I would like a visit from a merchandise collector Advance Directives: Yes ( my sister Delia ) Advance Directives Information Provided: No ( somewhere the information is signed ) Advance Directives on File: No Do you have thoughts of harming others: None Do you have a plan to hurt others: No Plan Recently lost weight without trying: No service: No Sexual orientation: Straight/Heterosexual Meds Allergies Allergy/AdvReac Type Severity Reaction Status Date / Time haloperidol [From HALDOL] Allergy Unknown RASH Verified 02/08/20 17:26 morphine [MORPHINE] Allergy Unknown RASH Verified 02/08/20 20:43 Penicillins [PENICILLINS] Allergy Unknown RASH Verified 02/08/20 20:43 risperidone [From RISPERDAL] Allergy Unknown RASH Verified 02/08/20 20:43 From HALDOL Allergy Unknown RASH Uncoded 01/21/20 17:23 Home Medications Medication Instructions Recorded Confirmed Type alprazolam 1 mg PO Q6H 10/05/20 10/05/20 History baclofen 10 mg PO BID 02/08/20 02/08/20 History buspirone 30 mg PO BID 02/08/20 02/08/20 History docusate sodium [Stool Softener] 100 mg PO BID 02/08/20 02/08/20 History fluoxetine 40 mg PO QAM 02/08/20 02/08/20 History lamotrigine 200 mg PO BID 02/08/20 02/08/20 History zolpidem 10 mg PO BEDTIME 02/08/20 02/08/20 History Physical Exam Vital Signs: Vital Signs: Vital Signs Temp Pulse BP 02/13/20 09:00 97.3 F 61 113/60 02/12/20 18:00 96.9 F 73 93/57 L Body Mass Index 16.9 Const: General: cooperative, anxious and tired appearing Nutritional Appearance: underweight Orientation/consciousness: patient oriented x3 Limitations: no limitations Resp: Effort & Inspection: normal respiratory effort, able to speak in complete sentences, no respiratory distress and no use of accessory muscles Auscultation: clear to auscultation bilaterally Percussion: percussion normal GI: Inspection: Yes normal to inspection and No distended Palpation (GI): nontender and no masses Percussion: Yes normal to percussion Auscultation: normal bowel sounds Rectal Exam - Female: deferred Neuro: General: patient oriented x3 Extrem: General: Yes normal to inspection and No no pedal edema Results Labs CBC & Chem 7: 02/08/20 20:22 02/10/20 20:22 Assessment and Plan (1) Major depressive disorder, recurrent, severe with psychotic features: Problem details: Patient is in midst of evaluation and treatment. Status: Acute As per BHN team. (2) Alcohol use disorder: Problem details: Patient insists this was an acute interuption of a her 10 year recovery. Status: Acute Monitor. (3) Crohn disease: Problem details: medical terminologist disease process had been under control. She needs further reevaluation of her current anemia, diarrhea, etc. Status: Acute As soon as available will get records from [facility]. In meantime,check CBC, CRP and nutrtional status. Hemoccults, stool studies all entered will trial bulking agent patient says she has tolerated this previously. Will follow.
--- NOTE | 2020-02-13 17:35 | HO.PSYCHPN ---
Subjective Subjective Date of Service: 02/13/20 Reason For Visit: patient admitted increasingly depressed OD Subjective Notes: Conditional Voluntary Interim History: Individual remains depressed and withdrawn. There has been no further evidence of her cheeking her medication and she states that she is taking them as prescribed. She reports that she ahs never been this depressed before. She did eat lunch and breakfast. Her shoulder has been less sore. Ortho consult was appreciated. Medication Compliance: Intermittent Side effects from medications: No Attending Groups: Intermittent Review of Systems Acute medical concerns: No Medical Review of Systems: unchanged Review of Systems Review of Systems Yes all other systems are reviewed and are negative Mental Status Exam Mental Status Exam Narrative: patient with quite constricted affect complains of severe depression could not really give a good explanation for why she tried to hide her medication this morning did respond to redirection and agree to recommit to not being a basis of head being more forthright denies active self-harm Patient Appearance: Disheveled Patient Orientation: Person, Place and Time Level of Consciousness: Awake Patient Behavior: Appropriate, Dependent, Avoidant and Good Eye Contact Mood Description: Anxious and Apprehensive Affect Description: Depressed, Anxious, Blunted and Sad Patient Cognition Impaired: No Ability to Follow Directions: Good Speech Pattern: Clear Memory Description: Recent Impaired ( has blackout) Hallucinations: None Delusions: Not Present Thought Process: Goal Oriented Thought Content: negative for Suicidal Ideation and negative for Homicidal Ideation Depressive Symptoms: Increased Anxiety, Diff. Making Decisions, Crying Spells, Feelings of Worthlessness, Hopelessness, Thoughts of /Suicide and Loss of Energy Judgement: Fair Diagnostics Vital Signs (24Hr): Vital Signs - 24 hr 02/12/20 18:00 02/13/20 09:00 Temperature 96.9 F 97.3 F Pulse Rate 73 61 Blood Pressure 93/57 L 113/60 Body Mass Index 16.9 Labs Results: 02/08/20 20:22 02/10/20 20:22 Medications Medications Current Medications Generic Name Dose Route Start Last Admin Trade Name Freq PRN Reason Stop Dose Admin Acetaminophen 650 mg 02/09/20 21:51 02/11/20 10:40 Acetaminophen 325 Mg Tablet PO 650 mg Q6H PRN Administration Headache/Pain Mild Scale (1-3) Al Hydroxide/Mg Hydroxide 30 ml 02/09/20 21:51 Magnesium Hydrox/Alum Hydrox 30 Ml Oral.Susp PO Q6H PRN Heartburn/Nausea Alprazolam 1 mg 02/10/20 21:00 02/13/20 14:55 Alprazolam 0.5 Mg Tablet PO 1 mg TID MARGARITA Administration Alprazolam 1 mg 02/11/20 20:56 02/13/20 05:06 Alprazolam 0.5 Mg Tablet PO 1 mg DAILY PRN Administration Anxiety Aripiprazole 5 mg 02/13/20 09:00 02/13/20 08:47 Aripiprazole 5 Mg Tablet PO 5 mg DAILY MARGARITA Administration Baclofen 10 mg 02/08/20 23:30 02/13/20 08:51 Baclofen 10 Mg Tablet PO 10 mg BID MARGARITA Administration Buspirone HCl 30 mg 02/10/20 09:00 02/13/20 08:49 Buspirone Hcl 10 Mg Tablet PO 30 mg BID MARGARITA Administration Cyanocobalamin 1,000 mcg 02/12/20 15:00 02/12/20 20:38 Cyanocobalamin (Vitamin B-12) 1,000 Mcg/Ml Vial IM 1,000 mcg Q7D MARGARITA Administration Diphenhydramine HCl 50 mg 02/11/20 20:17 02/13/20 00:56 Diphenhydramine Hcl 50 Mg/Ml Vial IM 50 mg BID PRN Administration Pain, Moderate (Pain Scale 4-6 Docusate Sodium 100 mg 02/09/20 09:00 02/13/20 08:58 Docusate Sodium 100 Mg Capsule PO Not Given BID MARGARITA Fluoxetine HCl 20 mg 02/13/20 09:00 02/13/20 08:48 Fluoxetine Hcl 20 Mg Capsule PO 20 mg DAILY MARGARITA Administration Ibuprofen 600 mg 02/13/20 10:13 Ibuprofen 600 Mg Tablet PO Q6H PRN Pain, Moderate (Pain Scale 4-6 Lamotrigine 200 mg 02/10/20 09:00 02/13/20 08:46 Lamotrigine 100 Mg Tablet PO 200 mg BID MARGARITA Administration Magnesium Hydroxide 30 ml 02/09/20 21:51 Milk Of Magnesia 30 Ml Oral.Susp PO DAILY PRN Constipation Trazodone HCl 50 mg 02/09/20 21:51 02/13/20 02:28 Trazodone Hcl 50 Mg Tablet PO 50 mg BEDTIME PRN Administration Insomnia Vilazodone HCl 10 mg 02/13/20 09:00 02/13/20 08:47 Vilazodone Hcl 10 Mg Tablet PO 10 mg DAILY MARGARITA Administration Zolpidem Tartrate 10 mg 02/10/20 21:00 02/12/20 20:35 Zolpidem Tartrate 5 Mg Tablet PO 10 mg BEDTIME MARGARITA Administration Allergies Allergies Allergy/AdvReac Type Severity Reaction Status Date / Time haloperidol [From HALDOL] Allergy Unknown RASH Verified 02/08/20 17:26 morphine [MORPHINE] Allergy Unknown RASH Verified 02/08/20 20:43 Penicillins [PENICILLINS] Allergy Unknown RASH Verified 02/08/20 20:43 risperidone [From RISPERDAL] Allergy Unknown RASH Verified 02/08/20 20:43 From HALDOL Allergy Unknown RASH Uncoded 01/21/20 17:23 Assessment & Plan Assessment & Plan (1) Major depressive disorder, recurrent, severe with psychotic features: Status: Acute Code(s): F33.3 - Major depressive disorder, recurrent, severe with psychotic symptoms Assessment and Plan: CT to encourage compliance with medications (2) S/P left rotator cuff repair: Status: Acute Code(s): Z98.890 - Other specified postprocedural states Assessment and Plan: CT to monitor Greater than 50% of the session was spent on counseling and/or coordination of care Patient educated on: diagnosis, medication risk/benefits and substance abuse Informed Consent: further education needed Reason for contiued inpatient stay Substantial Risk for: inability to function and rapid decompensation
[2020-02-13 18:00] VITALS: BP 114/62; PULSE 68; TEMP 36.3
[2020-02-13] MEDS: Zolpidem Tartrate 5 MG TABLET 10 MG PO (21:20)
[2020-02-14] MEDS: traZODone HCL 50 MG TABLET PO ×4 (01:04→22:43)
[2020-02-14 07:01] VITALS: BP 110/64; PULSE 73; TEMP 36.9
[2020-02-14] MEDS: ARIPiprazole 5 MG TABLET PO (08:16)
[2020-02-14] MEDS: FLUoxetine HCl 20 MG CAPSULE PO (08:17)
[2020-02-14] MEDS: ALPRAZolam 0.5 MG TABLET 1 MG PO ×4 (08:17→20:59)
[2020-02-14] MEDS: Vilazodone HCL 10 MG TABLET PO (08:17)
[2020-02-14] MEDS: lamoTRIgine 100 MG TABLET 200 MG PO ×2 (08:18→21:00)
[2020-02-14] MEDS: busPIRone HCl 10 MG TABLET 30 MG PO ×2 (08:18→20:58)
[2020-02-14] MEDS: Docusate Sodium 100 MG CAPSULE PO ×2 (08:19→20:59)
[2020-02-14] MEDS: Baclofen 10 MG TABLET PO ×2 (08:21→20:59)
[2020-02-14 08:58] LABS: MANUAL DIFF FLAG NO
[2020-02-14 09:22] LABS: Basophils Absolute Auto 0.1 X10*3/uL (0.0-0.2); Basophils Percent Auto 0.7 % (0-2); Eosinophils Absolute Auto 0.3 X10*3/uL (0.0-0.4); Eosinophils Percent Auto 4.2 % (0-4); Hematocrit 34.4 % (37-47); Hemoglobin 10.8 g/dl (12.0-16.0); Imm Gran Abs Auto 0.01 X10*3/uL (0.00-0.03); Imm Gran Pct Auto 0.1 % (0.0-0.4); Lymphocytes Absolute Auto 1.3 X10*3/uL (1.2-4.9); Lymphocytes Percent Auto 18.8 % (20-40); Mean Corpuscular HGB Conc 31.4 g/dl (31.0-35.0); Mean Corpuscular Hemoglobin 24.4 pg (27.0-33.0); Mean Corpuscular Volume 77.8 fL (80-98); Mean Platelet Volume 11.9 fL (9.4-12.3); Monocytes Absolute Auto 0.7 X10*3/uL (0.1-1.2); Neutrophils Absolute Auto 4.4 X10*3/uL (2.0-8.3); Neutrophils Percent Auto 65.2 % (45-73); Platelet Count 331 X10*3/uL (160-400); Red Blood Count 4.42 X10*6/uL (4.20-5.50); Red Cell Distribution Width 15.2 % (11.0-16.0); White Blood Count 6.7 X10*3/uL (4.8-10.8)
[2020-02-14 09:23] LABS: Iron 22 mcg/dL (30-160); Percent Iron Saturation 6 % (15-50); Total Iron Binding Capacity 365 mcg/dL (228-428); Unsaturated Iron Binding 343 ug/dL
[2020-02-14] MEDS: diphenhydrAMINE HCL 50 MG/ML VIAL IM ×2 (10:22→21:01)
[2020-02-14 15:10] VITALS: BP 98/61; PULSE 72
--- NOTE | 2020-02-14 15:39 | P.PNPSI_ITS ---
Subjective Subjective Date of Service: 02/14/20 Reason For Visit: patient admitted increasingly depressed OD Subjective Notes: Conditional Voluntary Interim History: Individual remains depressed and withdrawn. There has been no further evidence of her cheeking her medication and she states that she is taking them as prescribed. She reports that she ahs never been this depressed before. She is tolerating the medication changes put in place by Dr. Vargas She did eat lunch and breakfast. Her shoulder has been less sore. This was reviewed by ortho who agree that there is an improvement Medication Compliance: Yes Side effects from medications: No Attending Groups: Intermittent Review of Systems Acute medical concerns: No Medical Review of Systems: unchanged Mental Status Exam Mental Status Exam Narrative: Patient Appearance: Disheveled Patient Orientation: Person, Place and Time Level of Consciousness: Awake Patient Behavior: Appropriate, Dependent, Avoidant and Good Eye Contact Mood Description: Anxious and Apprehensive Affect Description: Depressed, Anxious, Blunted and Sad Patient Cognition Impaired: No Ability to Follow Directions: Good Speech Pattern: Clear Memory Description: Recent Impaired ( has blackout) Hallucinations: None Delusions: Not Present Thought Process: Goal Oriented Thought Content: negative for Suicidal Ideation and negative for Homicidal Ideation Depressive Symptoms: Increased Anxiety, Diff. Making Decisions, Crying Spells, Feelings of Worthlessness, Hopelessness, Thoughts of /Suicide and Loss of Energy Judgement: Fair Diagnostics Vital Signs (24Hr): Vital Signs - 24 hr 02/13/20 18:00 02/14/20 07:01 02/14/20 15:10 Temperature 97.3 F 98.5 F Pulse Rate 68 73 72 Blood Pressure 114/62 110/64 98/61 Body Mass Index 16.9 Labs Results: 02/14/20 08:38 02/10/20 20:22 Labs: Laboratory Results - last 48 hr 02/14/20 02/14/20 08:38 08:38 WBC 6.7 RBC 4.42 Hgb 10.8 L Hct 34.4 L MCV 77.8 L MCH 24.4 L MCHC 31.4 RDW 15.2 Plt Count 331 MPV 11.9 Immature Gran % (Auto) 0.1 Neut % (Auto) 65.2 Lymph % (Auto) 18.8 L [place] % (Auto) 11.0 Eos % (Auto) 4.2 H Baso % (Auto) 0.7 Lymph # (Auto) 1.3 [place] # (Auto) 0.7 Eos # (Auto) 0.3 Baso # (Auto) 0.1 Abs Immat Gran (auto) 0.01 Absolute Neuts (auto) 4.4 Absolute Nucleated RBC 0.000 Nucleated RBC % (auto) 0.0 Iron 22 L TIBC 365 % Saturation 6 L Unsat Iron Binding 343 C-Reactive Protein 1.10 H Prealbumin 18.0 L Medications Medications Current Medications Generic Name Dose Route Start Last Admin Trade Name Freq PRN Reason Stop Dose Admin Acetaminophen 650 mg 02/09/20 21:51 02/11/20 10:40 Acetaminophen 325 Mg Tablet PO 650 mg Q6H PRN Administration Headache/Pain Mild Scale (1-3) Al Hydroxide/Mg Hydroxide 30 ml 02/09/20 21:51 Magnesium Hydrox/Alum Hydrox 30 Ml Oral.Susp PO Q6H PRN Heartburn/Nausea Alprazolam 1 mg 02/10/20 21:00 02/14/20 14:43 Alprazolam 0.5 Mg Tablet PO 1 mg TID MARAGRITA Administration Alprazolam 1 mg 02/11/20 20:56 02/14/20 13:47 Alprazolam 0.5 Mg Tablet PO 1 mg DAILY PRN Administration Anxiety Aripiprazole 5 mg 02/13/20 09:00 02/14/20 08:16 Aripiprazole 5 Mg Tablet PO 5 mg DAILY MARGARITA Administration Baclofen 10 mg 02/08/20 23:30 02/14/20 08:21 Baclofen 10 Mg Tablet PO 10 mg BID MARGARITA Administration Buspirone HCl 30 mg 02/10/20 09:00 02/14/20 08:18 Buspirone Hcl 10 Mg Tablet PO 30 mg BID MARGARITA Administration Cyanocobalamin 1,000 mcg 02/12/20 15:00 02/12/20 20:38 Cyanocobalamin (Vitamin B-12) 1,000 Mcg/Ml Vial IM 1,000 mcg Q7D MARGARITA Administration Diphenhydramine HCl 50 mg 02/11/20 20:17 02/14/20 10:22 Diphenhydramine Hcl 50 Mg/Ml Vial IM 50 mg BID PRN Administration Pain, Moderate (Pain Scale 4-6 Docusate Sodium 100 mg 02/09/20 09:00 02/14/20 08:19 Docusate Sodium 100 Mg Capsule PO 100 mg BID MARGARITA Administration Fluoxetine HCl 20 mg 02/13/20 09:00 02/14/20 08:17 Fluoxetine Hcl 20 Mg Capsule PO 20 mg DAILY MARGARITA Administration Ibuprofen 600 mg 02/13/20 10:13 Ibuprofen 600 Mg Tablet PO Q6H PRN Pain, Moderate (Pain Scale 4-6 Lamotrigine 200 mg 02/10/20 09:00 02/14/20 08:18 Lamotrigine 100 Mg Tablet PO 200 mg BID MARGARITA Administration Magnesium Hydroxide 30 ml 02/09/20 21:51 Milk Of Magnesia 30 Ml Oral.Susp PO DAILY PRN Constipation Psyllium Hydrophilic Mucilloid 3.4 gm 02/14/20 09:00 02/14/20 08:20 Psyllium Seed 3.4 Gm Powd.Pack PO Not Given DAILY MARGARITA Trazodone HCl 50 mg 02/09/20 21:51 02/14/20 03:26 Trazodone Hcl 50 Mg Tablet PO 50 mg BEDTIME PRN Administration Insomnia Vilazodone HCl 10 mg 02/13/20 09:00 02/14/20 08:17 Vilazodone Hcl 10 Mg Tablet PO 10 mg DAILY MARGARITA Administration Zolpidem Tartrate 10 mg 02/10/20 21:00 02/13/20 21:20 Zolpidem Tartrate 5 Mg Tablet PO 10 mg BEDTIME MARGARITA Administration Allergies Allergies Allergy/AdvReac Type Severity Reaction Status Date / Time haloperidol [From HALDOL] Allergy Unknown RASH Verified 02/08/20 17:26 morphine [MORPHINE] Allergy Unknown RASH Verified 02/08/20 20:43 Penicillins [PENICILLINS] Allergy Unknown RASH Verified 02/08/20 20:43 risperidone [From RISPERDAL] Allergy Unknown RASH Verified 02/08/20 20:43 From HALDOL Allergy Unknown RASH Uncoded 01/21/20 17:23 Assessment & Plan Assessment & Plan (1) Major depressive disorder, recurrent, severe with psychotic features: Status: Acute Code(s): F33.3 - Major depressive disorder, recurrent, severe with psychotic symptoms Assessment and Plan: Continue medication as per Dr. Vargas (2) S/P left rotator cuff repair: Status: Acute Code(s): Z98.890 - Other specified postprocedural states Assessment and Plan: Improving drainage Greater than 50% of the session was spent on counseling and/or coordination of care
[2020-02-14 17:29] VITALS: BP 104/67; PULSE 88; TEMP 36.2; O2SAT 99
--- NOTE | 2020-02-14 19:05 | PM.PNORT ---
Subjective Subjective Interval history: Patient seen in [facility] treatment room today. She states her shoulder does seem to be improving since she has been off abx. Her main concern why the shoulder continues to drain. She states she is depressed and the shoulder adds to the depression. Physical Exam Vital Signs: Vital Signs: Vital Signs Temp Pulse BP Pulse Ox 02/14/20 17:29 97.2 F 88 104/67 99 02/14/20 15:10 72 98/61 02/14/20 07:01 98.5 F 73 110/64 Body Mass Index 16.9 Extrem: Other: Right shoulder : pin hole area less red today, scant serous fluid. No tenderness and no swelling. FF to 30 degrees. Progress Note: A&P Assessment and plan (1) Rotator cuff arthropathy of left shoulder: Status: Acute Assessment and Plan: It seems less likely that the shoulder is acutely infected. No redness or tenderness. No pain with ROM. Her most recent cultures and joint analysis was negative. On xray she has a high riding humeral head with is significant for RTC arthropathy, it may be that the fluid may be the result of a matty that has formed from chronic RTC tear. I explained to her that at this time there is nothing acute that we need to intervene for. I recommend she continue to follow with her ID doctor and orthopedic surgeon which she did agree to. If her condition changes during her stay, please contact us, otherwise we will sign off for now. Thank you for consulting. Fall Risk Details Current Medications: Current Medications Generic Name Dose Route Start Last Admin Trade Name Freq PRN Reason Stop Dose Admin Acetaminophen 650 mg 02/09/20 21:51 02/11/20 10:40 Acetaminophen 325 Mg Tablet PO 650 mg Q6H PRN Administration Headache/Pain Mild Scale (1-3) Al Hydroxide/Mg Hydroxide 30 ml 02/09/20 21:51 Magnesium Hydrox/Alum Hydrox 30 Ml Oral.Susp PO Q6H PRN Heartburn/Nausea Alprazolam 1 mg 02/10/20 21:00 02/14/20 14:43 Alprazolam 0.5 Mg Tablet PO 1 mg TID MARGARITA Administration Alprazolam 1 mg 02/11/20 20:56 02/14/20 13:47 Alprazolam 0.5 Mg Tablet PO 1 mg DAILY PRN Administration Anxiety Aripiprazole 5 mg 02/13/20 09:00 02/14/20 08:16 Aripiprazole 5 Mg Tablet PO 5 mg DAILY MARGARITA Administration Baclofen 10 mg 02/08/20 23:30 02/14/20 08:21 Baclofen 10 Mg Tablet PO 10 mg BID MARGARITA Administration Buspirone HCl 30 mg 02/10/20 09:00 02/14/20 08:18 Buspirone Hcl 10 Mg Tablet PO 30 mg BID MARGARITA Administration Cyanocobalamin 1,000 mcg 02/12/20 15:00 02/12/20 20:38 Cyanocobalamin (Vitamin B-12) 1,000 Mcg/Ml Vial IM 1,000 mcg Q7D MARGARITA Administration Diphenhydramine HCl 50 mg 02/11/20 20:17 02/14/20 10:22 Diphenhydramine Hcl 50 Mg/Ml Vial IM 50 mg BID PRN Administration Pain, Moderate (Pain Scale 4-6 Docusate Sodium 100 mg 02/09/20 09:00 02/14/20 08:19 Docusate Sodium 100 Mg Capsule PO 100 mg BID MARGARITA Administration Fluoxetine HCl 20 mg 02/13/20 09:00 02/14/20 08:17 Fluoxetine Hcl 20 Mg Capsule PO 20 mg DAILY MARGARITA Administration Ibuprofen 600 mg 02/13/20 10:13 Ibuprofen 600 Mg Tablet PO Q6H PRN Pain, Moderate (Pain Scale 4-6 Lamotrigine 200 mg 02/10/20 09:00 02/14/20 08:18 Lamotrigine 100 Mg Tablet PO 200 mg BID MARGARITA Administration Magnesium Hydroxide 30 ml 02/09/20 21:51 Milk Of Magnesia 30 Ml Oral.Susp PO DAILY PRN Constipation Psyllium Hydrophilic Mucilloid 3.4 gm 02/14/20 09:00 02/14/20 08:20 Psyllium Seed 3.4 Gm Powd.Pack PO Not Given DAILY MARGARITA Trazodone HCl 50 mg 02/09/20 21:51 02/14/20 03:26 Trazodone Hcl 50 Mg Tablet PO 50 mg BEDTIME PRN Administration Insomnia Vilazodone HCl 10 mg 02/13/20 09:00 02/14/20 08:17 Vilazodone Hcl 10 Mg Tablet PO 10 mg DAILY MARGARITA Administration Zolpidem Tartrate 10 mg 02/10/20 21:00 02/13/20 21:20 Zolpidem Tartrate 5 Mg Tablet PO 10 mg BEDTIME MARGARITA Administration Time Spent With Patient Time: Total time spent is greater than 50% in coordination of care (as documented) at patient's floor/unit and/or counseling patient: Time with patient: 25 - 35 minutes
[2020-02-14] MEDS: Zolpidem Tartrate 5 MG TABLET 10 MG PO (21:00)
--- NOTE | 2020-02-14 22:53 | PC.NURSE ---
REFUSED TO PROVIDE STOOL SAMPLE FOR TESTS ORDERED YESTERDAY BY DR MALAIKA CABRERA. PT REPORTS THAT SHE DOES NOT HAVE CDIFF AND DOES NOT NEED TESTS PERFORMED.
[2020-02-15] MEDS: traZODone HCL 50 MG TABLET PO ×3 (00:51→23:51)
[2020-02-15] MEDS: diphenhydrAMINE HCL 50 MG/ML VIAL IM ×2 (02:56→21:20)
[2020-02-15] MEDS: ALPRAZolam 0.5 MG TABLET 1 MG PO ×4 (04:28→21:44)
[2020-02-15] MEDS: Acetaminophen 325 MG TABLET 650 MG PO (04:29)
[2020-02-15 07:00] VITALS: BP 108/61; PULSE 86; RESP 16; TEMP 36.9
[2020-02-15] MEDS: busPIRone HCl 10 MG TABLET 30 MG PO ×2 (08:58→21:15)
[2020-02-15] MEDS: ARIPiprazole 5 MG TABLET PO (08:58)
[2020-02-15] MEDS: Vilazodone HCL 10 MG TABLET PO (08:58)
[2020-02-15] MEDS: lamoTRIgine 100 MG TABLET 200 MG PO ×2 (08:59→21:12)
[2020-02-15] MEDS: Baclofen 10 MG TABLET PO ×2 (08:59→21:15)
[2020-02-15] MEDS: Docusate Sodium 100 MG CAPSULE PO ×2 (09:00→21:15)
[2020-02-15] MEDS: FLUoxetine HCl 20 MG CAPSULE PO (09:01)
[2020-02-15 18:52] VITALS: BP 105/63; PULSE 76; TEMP 36.3
--- NOTE | 2020-02-15 20:46 | P.PNPSI_ITS ---
Subjective Subjective Reason For Visit: patient admitted increasingly depressed OD Subjective Notes: Conditional Voluntary Interim History: patient continues to be severely depressed on Viibryd and Abilify history of ECT asking about the possibility of this Medication Compliance: Yes Side effects from medications: No Attending Groups: Intermittent Mental Status Exam Mental Status Exam Narrative: sad looking wearing hospital garb overwhelmed with medical issues Patient Appearance: Disheveled Patient Orientation: Person, Place and Time Level of Consciousness: Awake Patient Behavior: Appropriate, Passive, Anxious, Avoidant, Fatigued and Good Eye Contact Mood Description: Anxious and Apprehensive Affect Description: Depressed, Anxious, Blunted and Sad Patient Cognition Impaired: No Ability to Follow Directions: Good Speech Pattern: Clear Memory Description: Recent Impaired ( has blackout) Diagnostics Vital Signs (24Hr): Vital Signs - 24 hr 02/15/20 07:00 02/15/20 18:52 Temperature 98.5 F 97.3 F Pulse Rate 86 76 Respiratory Rate 16 Blood Pressure 108/61 105/63 Body Mass Index 16.9 Labs Results: 02/14/20 08:38 02/10/20 20:22 Labs: Laboratory Results - last 48 hr 02/14/20 02/14/20 08:38 08:38 WBC 6.7 RBC 4.42 Hgb 10.8 L Hct 34.4 L MCV 77.8 L MCH 24.4 L MCHC 31.4 RDW 15.2 Plt Count 331 MPV 11.9 Immature Gran % (Auto) 0.1 Neut % (Auto) 65.2 Lymph % (Auto) 18.8 L [place] % (Auto) 11.0 Eos % (Auto) 4.2 H Baso % (Auto) 0.7 Lymph # (Auto) 1.3 [place] # (Auto) 0.7 Eos # (Auto) 0.3 Baso # (Auto) 0.1 Abs Immat Gran (auto) 0.01 Absolute Neuts (auto) 4.4 Absolute Nucleated RBC 0.000 Nucleated RBC % (auto) 0.0 Iron 22 L TIBC 365 % Saturation 6 L Unsat Iron Binding 343 C-Reactive Protein 1.10 H Prealbumin 18.0 L Medications Medications Current Medications Generic Name Dose Route Start Last Admin Trade Name Freq PRN Reason Stop Dose Admin Acetaminophen 650 mg 02/09/20 21:51 02/15/20 04:29 Acetaminophen 325 Mg Tablet PO 650 mg Q6H PRN Administration Headache/Pain Mild Scale (1-3) Al Hydroxide/Mg Hydroxide 30 ml 02/09/20 21:51 Magnesium Hydrox/Alum Hydrox 30 Ml Oral.Susp PO Q6H PRN Heartburn/Nausea Alprazolam 1 mg 02/10/20 21:00 02/15/20 13:59 Alprazolam 0.5 Mg Tablet PO 1 mg TID MARGARITA Administration Alprazolam 1 mg 02/11/20 20:56 02/15/20 04:28 Alprazolam 0.5 Mg Tablet PO 1 mg DAILY PRN Administration Anxiety Aripiprazole 5 mg 02/13/20 09:00 02/15/20 08:58 Aripiprazole 5 Mg Tablet PO 5 mg DAILY MARGARITA Administration Baclofen 10 mg 02/08/20 23:30 02/15/20 08:59 Baclofen 10 Mg Tablet PO 10 mg BID MARGARITA Administration Buspirone HCl 30 mg 02/10/20 09:00 02/15/20 08:58 Buspirone Hcl 10 Mg Tablet PO 30 mg BID MARGARITA Administration Cyanocobalamin 1,000 mcg 02/12/20 15:00 02/12/20 20:38 Cyanocobalamin (Vitamin B-12) 1,000 Mcg/Ml Vial IM 1,000 mcg Q7D MARGARITA Administration Diphenhydramine HCl 50 mg 02/11/20 20:17 02/15/20 02:56 Diphenhydramine Hcl 50 Mg/Ml Vial IM 50 mg BID PRN Administration Pain, Moderate (Pain Scale 4-6 Docusate Sodium 100 mg 02/09/20 09:00 02/15/20 09:00 Docusate Sodium 100 Mg Capsule PO 100 mg BID MARGARITA Administration Fluoxetine HCl 20 mg 02/13/20 09:00 02/15/20 09:01 Fluoxetine Hcl 20 Mg Capsule PO 20 mg DAILY MARGARITA Administration Ibuprofen 600 mg 02/13/20 10:13 Ibuprofen 600 Mg Tablet PO Q6H PRN Pain, Moderate (Pain Scale 4-6 Lamotrigine 200 mg 02/10/20 09:00 02/15/20 08:59 Lamotrigine 100 Mg Tablet PO 200 mg BID MARGARITA Administration Magnesium Hydroxide 30 ml 02/09/20 21:51 Milk Of Magnesia 30 Ml Oral.Susp PO DAILY PRN Constipation Psyllium Hydrophilic Mucilloid 3.4 gm 02/14/20 09:00 02/15/20 09:21 Psyllium Seed 3.4 Gm Powd.Pack PO Not Given DAILY MARGARITA Trazodone HCl 50 mg 02/09/20 21:51 02/15/20 00:51 Trazodone Hcl 50 Mg Tablet PO 50 mg BEDTIME PRN Administration Insomnia Vilazodone HCl 20 mg 02/16/20 09:00 Vilazodone Hcl 10 Mg Tablet PO DAILY MARGARITA Zolpidem Tartrate 10 mg 02/10/20 21:00 02/14/20 21:00 Zolpidem Tartrate 5 Mg Tablet PO 10 mg BEDTIME MARGARITA Administration Allergies Allergies Allergy/AdvReac Type Severity Reaction Status Date / Time haloperidol [From HALDOL] Allergy Unknown RASH Verified 02/08/20 17:26 morphine [MORPHINE] Allergy Unknown RASH Verified 02/08/20 20:43 Penicillins [PENICILLINS] Allergy Unknown RASH Verified 02/08/20 20:43 risperidone [From RISPERDAL] Allergy Unknown RASH Verified 02/08/20 20:43 From HALDOL Allergy Unknown RASH Uncoded 01/21/20 17:23 Assessment & Plan Assessment & Plan (1) Rotator cuff arthropathy of left shoulder: Status: Acute Code(s): M12.812 - Other specific arthropathies, not elsewhere classified, left shoulder Assessment and Plan: It seems less likely that the shoulder is acutely infected. No redness or tenderness. No pain with ROM. Her most recent cultures and joint analysis was negative. On xray she has a high riding humeral head with is significant for RTC arthropathy, it may be that the fluid may be the result of a matty that has formed from chronic RTC tear. I explained to her that at this time there is nothing acute that we need to intervene for. I recommend she continue to follow with her ID doctor and orthopedic surgeon which she did agree to. If her condition changes during her stay, please contact us, otherwise we will sign off for now. Thank you for consulting. ortho consult above reviewed (2) PTSD (post-traumatic stress disorder): Status: Acute Code(s): F43.10 - Post-traumatic stress disorder, unspecified (3) Cocaine use disorder, mild, abuse: Status: Acute Code(s): F14.10 - Cocaine abuse, uncomplicated (4) Alcohol use disorder: Status: Acute Assessment and Plan: encourage sobriety (5) Anorexia nervosa with bulimia: Status: Acute Code(s): F50.02 - Anorexia nervosa, binge eating/purging type Assessment and Plan: encourage appropriate eating monitor electrolytes (6) Major depressive disorder, recurrent, severe w/o psychotic behavior: Status: Acute Code(s): F33.2 - Major depressive disorder, recurrent severe without psychotic features Assessment and Plan: increase Viibryd as tolerated increase Abilify consider ECT Greater than 50% of the session was spent on counseling and/or coordination of care
[2020-02-15] MEDS: Zolpidem Tartrate 5 MG TABLET 10 MG PO (21:14)
[2020-02-16] MEDS: traZODone HCL 50 MG TABLET PO (00:47)
[2020-02-16] MEDS: diphenhydrAMINE HCL 50 MG/ML VIAL IM ×2 (03:16→21:07)
[2020-02-16 06:07] VITALS: BP 115/66; PULSE 66; RESP 14; TEMP 36.3; O2SAT 98
[2020-02-16] MEDS: ALPRAZolam 0.5 MG TABLET 1 MG PO ×4 (08:44→21:08)
[2020-02-16] MEDS: lamoTRIgine 100 MG TABLET 200 MG PO ×2 (08:45→21:05)
[2020-02-16] MEDS: Vilazodone HCL 10 MG TABLET 20 MG PO (08:45)
[2020-02-16] MEDS: FLUoxetine HCl 20 MG CAPSULE PO (08:46)
[2020-02-16] MEDS: Baclofen 10 MG TABLET PO ×2 (08:46→21:09)
[2020-02-16] MEDS: ARIPiprazole 5 MG TABLET 7.5 MG PO (08:47)
[2020-02-16] MEDS: Docusate Sodium 100 MG CAPSULE PO ×2 (08:47→21:04)
[2020-02-16] MEDS: busPIRone HCl 10 MG TABLET 30 MG PO ×2 (09:59→21:07)
[2020-02-16 15:13] VITALS: BP 91/55; PULSE 65
--- NOTE | 2020-02-16 15:31 | PC.NURSE ---
DR YEAGER AND DR CABRERA NOTIFIED OF PT'S REFUSAL OF PROVIDING A STOOL SAMPLE FOR CDIFF WITH RELEX TO PCR ROUTINE, LEUKOCYTES STOOL QUALITATIVE ROUTINE AND OBS X1 ROUTINE.
[2020-02-16 18:00] VITALS: BP 105/73; PULSE 63; TEMP 36.7
[2020-02-16] MEDS: Zolpidem Tartrate 5 MG TABLET 10 MG PO (21:04)
[2020-02-16 21:45] LABS: Leukocytes Stool Qualitative NEGATIVE (NEGATIVE)
--- NOTE | 2020-02-16 22:55 | HO.PSYCHPN ---
Subjective Subjective Reason For Visit: patient admitted increasingly depressed OD Subjective Notes: Conditional Voluntary Interim History: pt severely depressed withdrawn hopeless helpless Medication Compliance: Yes Side effects from medications: Yes Review of Systems Constitutional: Reports body ache(s) and Reports daytime sleepiness Gastrointestinal: Reports abdominal pain and Reports loose stools Musculoskeletal: Reports arthralgias Psychiatric: Reports hopelessness and Reports irritability Mental Status Exam Mental Status Exam Narrative: sad looking wearing hospital garb overwhelmed with medical issues Patient Appearance: Disheveled Patient Orientation: Person, Place and Time Level of Consciousness: Awake Patient Behavior: Appropriate, Passive, Anxious, Avoidant, Fatigued and Good Eye Contact Mood Description: Anxious and Apprehensive Affect Description: Depressed, Anxious, Blunted and Sad Patient Cognition Impaired: No Ability to Follow Directions: Good Speech Pattern: Clear Memory Description: Recent Impaired ( has blackout) Hallucinations: None Delusions: Not Present Thought Content: positive for Perseveration and positive for Suicidal Ideation (no plan ) Diagnostics Vital Signs (24Hr): Vital Signs - 24 hr 02/16/20 06:07 02/16/20 15:13 02/16/20 18:00 Temperature 97.3 F 98.0 F Pulse Rate 66 65 63 Respiratory Rate 14 Blood Pressure 115/66 91/55 L 105/73 Pulse Oximetry 98 Body Mass Index 16.9 Labs Results: 02/14/20 08:38 02/10/20 20:22 Labs: Laboratory Results - last 48 hr 02/16/20 20:30 Stool Leukocytes, Qual NEGATIVE Medications Medications Current Medications Generic Name Dose Route Start Last Admin Trade Name Freq PRN Reason Stop Dose Admin Acetaminophen 650 mg 02/09/20 21:51 02/15/20 04:29 Acetaminophen 325 Mg Tablet PO 650 mg Q6H PRN Administration Headache/Pain Mild Scale (1-3) Al Hydroxide/Mg Hydroxide 30 ml 02/09/20 21:51 Magnesium Hydrox/Alum Hydrox 30 Ml Oral.Susp PO Q6H PRN Heartburn/Nausea Alprazolam 1 mg 02/11/20 20:56 02/16/20 18:30 Alprazolam 0.5 Mg Tablet PO 1 mg DAILY PRN Administration Anxiety Alprazolam 1 mg 02/15/20 21:30 02/16/20 21:08 Alprazolam 0.5 Mg Tablet PO 1 mg TID MARGARITA Administration Aripiprazole 7.5 mg 02/16/20 09:00 02/16/20 08:47 Aripiprazole 5 Mg Tablet PO 7.5 mg DAILY MARGARITA Administration Baclofen 10 mg 02/08/20 23:30 02/16/20 21:09 Baclofen 10 Mg Tablet PO 10 mg BID MARGARITA Administration Buspirone HCl 30 mg 02/10/20 09:00 02/16/20 21:07 Buspirone Hcl 10 Mg Tablet PO 30 mg BID MARGARITA Administration Cyanocobalamin 1,000 mcg 02/12/20 15:00 02/12/20 20:38 Cyanocobalamin (Vitamin B-12) 1,000 Mcg/Ml Vial IM 1,000 mcg Q7D MARGARITA Administration Diphenhydramine HCl 50 mg 02/11/20 20:17 02/16/20 21:07 Diphenhydramine Hcl 50 Mg/Ml Vial IM 50 mg BID PRN Administration Pain, Moderate (Pain Scale 4-6 Docusate Sodium 100 mg 02/09/20 09:00 02/16/20 21:04 Docusate Sodium 100 Mg Capsule PO 100 mg BID MARGARITA Administration Fluoxetine HCl 20 mg 02/13/20 09:00 02/16/20 08:46 Fluoxetine Hcl 20 Mg Capsule PO 20 mg DAILY MARGARITA Administration Ibuprofen 600 mg 02/13/20 10:13 Ibuprofen 600 Mg Tablet PO Q6H PRN Pain, Moderate (Pain Scale 4-6 Lamotrigine 200 mg 02/10/20 09:00 02/16/20 21:05 Lamotrigine 100 Mg Tablet PO 200 mg BID MARGARITA Administration Magnesium Hydroxide 30 ml 02/09/20 21:51 Milk Of Magnesia 30 Ml Oral.Susp PO DAILY PRN Constipation Psyllium Hydrophilic Mucilloid 3.4 gm 02/14/20 09:00 02/16/20 08:50 Psyllium Seed 3.4 Gm Powd.Pack PO Not Given DAILY MARGARITA Trazodone HCl 50 mg 02/09/20 21:51 02/16/20 00:47 Trazodone Hcl 50 Mg Tablet PO 50 mg BEDTIME PRN Administration Insomnia Vilazodone HCl 20 mg 02/16/20 09:00 02/16/20 08:45 Vilazodone Hcl 10 Mg Tablet PO 20 mg DAILY MARGARITA Administration Zolpidem Tartrate 10 mg 02/10/20 21:00 02/16/20 21:04 Zolpidem Tartrate 5 Mg Tablet PO 10 mg BEDTIME MARGARITA Administration Allergies Allergies Allergy/AdvReac Type Severity Reaction Status Date / Time haloperidol [From HALDOL] Allergy Unknown RASH Verified 02/08/20 17:26 morphine [MORPHINE] Allergy Unknown RASH Verified 02/08/20 20:43 Penicillins [PENICILLINS] Allergy Unknown RASH Verified 02/08/20 20:43 risperidone [From RISPERDAL] Allergy Unknown RASH Verified 02/08/20 20:43 From HALDOL Allergy Unknown RASH Uncoded 01/21/20 17:23 Assessment & Plan Assessment & Plan (1) Major depressive disorder, recurrent, severe w/o psychotic behavior: Status: Acute Code(s): F33.2 - Major depressive disorder, recurrent severe without psychotic features (2) Rotator cuff arthropathy of left shoulder: Status: Acute Code(s): M12.812 - Other specific arthropathies, not elsewhere classified, left shoulder (3) PTSD (post-traumatic stress disorder): Status: Acute Code(s): F43.10 - Post-traumatic stress disorder, unspecified Assessment and Plan: cont coping skills Greater than 50% of the session was spent on counseling and/or coordination of care
[2020-02-17] MEDS: traZODone HCL 50 MG TABLET PO ×2 (00:21→01:55)
[2020-02-17 04:35] VITALS: BP 94/63; PULSE 80; RESP 16; TEMP 36.6; O2SAT 97
[2020-02-17] MEDS: diphenhydrAMINE HCL 50 MG/ML VIAL IM ×2 (04:41→20:58)
[2020-02-17] MEDS: ARIPiprazole 5 MG TABLET 7.5 MG PO (08:25)
[2020-02-17] MEDS: ALPRAZolam 0.5 MG TABLET 1 MG PO ×4 (08:26→20:57)
[2020-02-17] MEDS: busPIRone HCl 10 MG TABLET 30 MG PO ×2 (08:26→20:57)
[2020-02-17] MEDS: Vilazodone HCL 10 MG TABLET 20 MG PO (08:27)
[2020-02-17] MEDS: lamoTRIgine 100 MG TABLET 200 MG PO (08:28)
[2020-02-17] MEDS: Baclofen 10 MG TABLET PO ×2 (08:30→20:57)
[2020-02-17] MEDS: FLUoxetine HCl 20 MG CAPSULE PO (08:33)
[2020-02-17] MEDS: Docusate Sodium 100 MG CAPSULE PO (08:36)
[2020-02-17 10:26] LABS: CDIFF Ag Negative (Negative); CDIFF Internal ctrl Dots and bkg OK (V); CDiff Toxin Negative (Negative)
[2020-02-17 14:33] VITALS: BP 90/60; PULSE 74
[2020-02-17 18:30] VITALS: BP 104/77; PULSE 79; TEMP 35.8
[2020-02-17] MEDS: Zolpidem Tartrate 5 MG TABLET 10 MG PO (20:58)
[2020-02-17] MEDS: lamoTRIgine 100 MG TABLET PO (20:58)
--- NOTE | 2020-02-17 22:14 | HO.PSYCHPN ---
Subjective Subjective Reason For Visit: patient admitted increasingly depressed OD Subjective Notes: Conditional Voluntary Interim History: pt severely depressed withdrawn hopeless helpless asking about ect Medication Compliance: Yes Side effects from medications: Yes Mental Status Exam Mental Status Exam Narrative: sad looking wearing hospital garb overwhelmed with medical issues Patient Appearance: Disheveled Patient Orientation: Person, Place and Time Level of Consciousness: Awake Patient Behavior: Appropriate, Passive, Anxious, Avoidant, Fatigued and Good Eye Contact Mood Description: Anxious and Apprehensive Affect Description: Depressed, Anxious, Blunted and Sad Patient Cognition Impaired: No Ability to Follow Directions: Good Speech Pattern: Clear Memory Description: Recent Impaired ( has blackout) Hallucinations: None Delusions: Not Present Thought Content: positive for Perseveration and positive for Suicidal Ideation (no plan ) Diagnostics Vital Signs (24Hr): Vital Signs - 24 hr 02/17/20 04:35 02/17/20 14:33 02/17/20 18:30 Temperature 97.9 F 96.5 F L Pulse Rate 80 74 79 Respiratory Rate 16 Blood Pressure 94/63 90/60 104/77 Pulse Oximetry 97 Body Mass Index 16.9 Labs Results: 02/14/20 08:38 02/10/20 20:22 Labs: Laboratory Results - last 48 hr 02/16/20 02/16/20 20:30 20:30 Stool Leukocytes, Qual NEGATIVE C. difficile Toxin A&B Negative C. difficile Antigen Negative C. difficile Interpret SEE NOTE Medications Medications Current Medications Generic Name Dose Route Start Last Admin Trade Name Freq PRN Reason Stop Dose Admin Acetaminophen 650 mg 02/09/20 21:51 02/15/20 04:29 Acetaminophen 325 Mg Tablet PO 650 mg Q6H PRN Administration Headache/Pain Mild Scale (1-3) Al Hydroxide/Mg Hydroxide 30 ml 02/09/20 21:51 Magnesium Hydrox/Alum Hydrox 30 Ml Oral.Susp PO Q6H PRN Heartburn/Nausea Alprazolam 1 mg 02/11/20 20:56 02/17/20 18:29 Alprazolam 0.5 Mg Tablet PO 1 mg DAILY PRN Administration Anxiety Alprazolam 1 mg 02/15/20 21:30 02/17/20 20:57 Alprazolam 0.5 Mg Tablet PO 1 mg TID MARGARITA Administration Aripiprazole 10 mg 02/18/20 09:00 Aripiprazole 10 Mg Tablet PO DAILY MARGARITA Baclofen 10 mg 02/08/20 23:30 02/17/20 20:57 Baclofen 10 Mg Tablet PO 10 mg BID MARGARITA Administration Buspirone HCl 30 mg 02/10/20 09:00 02/17/20 20:57 Buspirone Hcl 10 Mg Tablet PO 30 mg BID MARGARITA Administration Cyanocobalamin 1,000 mcg 02/12/20 15:00 02/12/20 20:38 Cyanocobalamin (Vitamin B-12) 1,000 Mcg/Ml Vial IM 1,000 mcg Q7D MARGARITA Administration Diphenhydramine HCl 50 mg 02/11/20 20:17 02/17/20 20:58 Diphenhydramine Hcl 50 Mg/Ml Vial IM 50 mg BID PRN Administration Pain, Moderate (Pain Scale 4-6 Docusate Sodium 100 mg 02/09/20 09:00 02/17/20 21:05 Docusate Sodium 100 Mg Capsule PO Not Given BID [facility] Ibuprofen 600 mg 02/13/20 10:13 Ibuprofen 600 Mg Tablet PO Q6H PRN Pain, Moderate (Pain Scale 4-6 Lamotrigine 100 mg 02/17/20 21:00 02/17/20 20:58 Lamotrigine 100 Mg Tablet PO 100 mg BID [facility] Administration Magnesium Hydroxide 30 ml 02/09/20 21:51 Milk Of Magnesia 30 Ml Oral.Susp PO DAILY PRN Constipation Psyllium Hydrophilic Mucilloid 3.4 gm 02/14/20 09:00 02/17/20 08:30 Psyllium Seed 3.4 Gm Powd.Pack PO Not Given DAILY [facility] Trazodone HCl 50 mg 02/09/20 21:51 02/17/20 01:55 Trazodone Hcl 50 Mg Tablet PO 50 mg BEDTIME PRN Administration Insomnia Vilazodone HCl 40 mg 02/18/20 09:00 Vilazodone Hcl 40 Mg Tablet PO DAILY [facility] Zolpidem Tartrate 10 mg 02/10/20 21:00 02/17/20 20:58 Zolpidem Tartrate 5 Mg Tablet PO 10 mg BEDTIME MARGARITA Administration Allergies Allergies Allergy/AdvReac Type Severity Reaction Status Date / Time haloperidol [From HALDOL] Allergy Unknown RASH Verified 02/08/20 17:26 morphine [MORPHINE] Allergy Unknown RASH Verified 02/08/20 20:43 Penicillins [PENICILLINS] Allergy Unknown RASH Verified 02/08/20 20:43 risperidone [From RISPERDAL] Allergy Unknown RASH Verified 02/08/20 20:43 From HALDOL Allergy Unknown RASH Uncoded 01/21/20 17:23 Assessment & Plan Assessment & Plan (1) Major depressive disorder, recurrent, severe w/o psychotic behavior: Status: Acute Code(s): F33.2 - Major depressive disorder, recurrent severe without psychotic features (2) PTSD (post-traumatic stress disorder): Status: Acute Code(s): F43.10 - Post-traumatic stress disorder, unspecified Assessment and Plan: inc vilazadone 40 mg inc abilify 10 mg if not effective ect which has been helpful in the past Greater than 50% of the session was spent on counseling and/or coordination of care
--- NOTE | 2020-02-18 | ECG_ITS ---
Test Reason : ect clearance Blood Pressure : / mmHG Vent. Rate : 071 BPM Atrial Rate : 071 BPM P-R Int : 154 ms QRS Dur : 080 ms QT Int : 460 ms P-R-T Axes : 006 062 057 degrees QTc Int : 499 ms Normal sinus rhythm RSR' or QR pattern in V1 suggests right ventricular conduction delay Nonspecific ST and T wave abnormality Prolonged QT Abnormal ECG When compared with ECG of 17-DEC-2005 15:21, Nonspecific T wave abnormality now evident in Lateral leads QT has lengthened Referred By: Artie Vargas Electronically Signed By:RAGHAV MCHUGH MD
[2020-02-18] MEDS: traZODone HCL 50 MG TABLET PO ×3 (00:38→23:41)
[2020-02-18] MEDS: diphenhydrAMINE HCL 50 MG/ML VIAL IM ×2 (03:10→20:45)
[2020-02-18] MEDS: ALPRAZolam 0.5 MG TABLET 1 MG PO ×4 (06:33→20:44)
[2020-02-18 07:00] VITALS: BMI 17.4
[2020-02-18 07:22] LABS: OBS Int Ctl Valid YES; OBS1 NEG (NEG)
[2020-02-18 08:09] VITALS: BP 110/69; PULSE 77; TEMP 36
[2020-02-18] MEDS: lamoTRIgine 100 MG TABLET PO ×2 (08:40→20:43)
[2020-02-18] MEDS: Vilazodone HCL 40 MG TABLET PO (08:40)
[2020-02-18] MEDS: Baclofen 10 MG TABLET PO ×2 (08:41→20:45)
[2020-02-18] MEDS: ARIPiprazole 10 MG TABLET PO (08:41)
[2020-02-18] MEDS: busPIRone HCl 10 MG TABLET 30 MG PO ×2 (10:17→20:43)
[2020-02-18 17:19] VITALS: BP 102/63; PULSE 84; TEMP 36.4
--- NOTE | 2020-02-18 20:20 | PM.EVENT ---
Documented by User: MELISSA Gauthier 02/19/20 11:32 Event Note Event Note: Called to see patient for preop evaluation for ECT. Patient has no history of cardiopulmonary disease. Good functional capacity. No adverse events with anesthesia. Has had ECT in the past. She reports mild associated short-term memory loss otherwise no adverse events. She denies any shortness of breath or chest pain with activity. She does have a history of seizure disorder, she reports her Lamictal is currently being weaned down in preparation for ECT. EKG pending at this time, will need to be reviewed. Documented by User: Richard Randolph MD 02/21/20 14:21 Event Note Event Note: Date of service: 02/18/20
[2020-02-18] MEDS: Zolpidem Tartrate 5 MG TABLET 10 MG PO (20:43)
--- NOTE | 2020-02-18 21:34 | HO.PSYCHPN ---
Subjective Subjective Reason For Visit: patient admitted increasingly depressed OD Interim History: pt severely depressed withdrawn hopeless helpless asking about ect has had trials of citalopram seroquel wellbutrin prozac abilify vilazadone buspar lamictal Review of Systems Constitutional: Reports anorexia Cardiovascular: Reports no additional cardiovascular complaints Hematologic/Lymphatic: Reports no additional hematologic/lymphatic complaints Mental Status Exam Mental Status Exam Narrative: sad looking wearing hospital garb overwhelmed with medical issues Patient Appearance: Disheveled Patient Orientation: Person, Place and Time Level of Consciousness: Awake Patient Behavior: Appropriate, Passive, Anxious, Avoidant, Fatigued and Good Eye Contact Mood Description: Anxious and Apprehensive Affect Description: Depressed, Anxious, Blunted and Sad Patient Cognition Impaired: No Ability to Follow Directions: Good Speech Pattern: Clear Memory Description: Recent Impaired ( has blackout) Depressive Symptoms: Increased Anxiety, Insomnia, Diff. Making Decisions, Crying Spells, Feelings of Worthlessness, Feelings of Guilt and Thoughts of /Suicide Judgement: Fair Diagnostics Vital Signs (24Hr): Vital Signs - 24 hr 02/18/20 08:09 02/18/20 17:19 Temperature 96.8 F 97.5 F Pulse Rate 77 84 Blood Pressure 110/69 102/63 Body Mass Index 16.9 Labs Results: 02/14/20 08:38 02/10/20 20:22 Labs: Laboratory Results - last 48 hr 02/16/20 02/16/20 02/16/20 20:30 20:30 Unknown Stool Occult Blood NEG Stool Leukocytes, Qual NEGATIVE C. difficile Toxin A&B Negative C. difficile Antigen Negative C. difficile Interpret SEE NOTE Medications Medications Current Medications Generic Name Dose Route Start Last Admin Trade Name Freq PRN Reason Stop Dose Admin Acetaminophen 650 mg 02/09/20 21:51 02/15/20 04:29 Acetaminophen 325 Mg Tablet PO 650 mg Q6H PRN Administration Headache/Pain Mild Scale (1-3) Al Hydroxide/Mg Hydroxide 30 ml 02/09/20 21:51 Magnesium Hydrox/Alum Hydrox 30 Ml Oral.Susp PO Q6H PRN Heartburn/Nausea Alprazolam 1 mg 02/11/20 20:56 02/18/20 06:33 Alprazolam 0.5 Mg Tablet PO 1 mg DAILY PRN Administration Anxiety Alprazolam 1 mg 02/15/20 21:30 02/18/20 20:44 Alprazolam 0.5 Mg Tablet PO 1 mg TID MARGARITA Administration Aripiprazole 10 mg 02/18/20 09:00 02/18/20 08:41 Aripiprazole 10 Mg Tablet PO 10 mg DAILY [facility] Administration Baclofen 10 mg 02/08/20 23:30 02/18/20 20:45 Baclofen 10 Mg Tablet PO 10 mg BID MARGARITA Administration Buspirone HCl 30 mg 02/10/20 09:00 02/18/20 20:43 Buspirone Hcl 10 Mg Tablet PO 30 mg BID [facility] Administration Cyanocobalamin 1,000 mcg 02/12/20 15:00 02/12/20 20:38 Cyanocobalamin (Vitamin B-12) 1,000 Mcg/Ml Vial IM 1,000 mcg Q7D MARGARITA Administration Diphenhydramine HCl 50 mg 02/11/20 20:17 02/18/20 20:45 Diphenhydramine Hcl 50 Mg/Ml Vial IM 50 mg BID PRN Administration Pain, Moderate (Pain Scale 4-6 Docusate Sodium 100 mg 02/09/20 09:00 02/18/20 20:50 Docusate Sodium 100 Mg Capsule PO Not Given BID [facility] Ibuprofen 600 mg 02/13/20 10:13 Ibuprofen 600 Mg Tablet PO Q6H PRN Pain, Moderate (Pain Scale 4-6 Lamotrigine 100 mg 02/17/20 21:00 02/18/20 20:43 Lamotrigine 100 Mg Tablet PO 100 mg BID MARG[facility]ITA Administration Magnesium Hydroxide 30 ml 02/09/20 21:51 Milk Of Magnesia 30 Ml Oral.Susp PO DAILY PRN Constipation Psyllium Hydrophilic Mucilloid 3.4 gm 02/14/20 09:00 02/18/20 08:41 Psyllium Seed 3.4 Gm Powd.Pack PO Not Given DAILY [facility]ARG[facility] Trazodone HCl 50 mg 02/09/20 21:51 02/18/20 01:36 Trazodone Hcl 50 Mg Tablet PO 50 mg BEDTIME PRN Administration Insomnia Vilazodone HCl 40 mg 02/18/20 09:00 02/18/20 08:40 Vilazodone Hcl 40 Mg Tablet PO 40 mg DAILY [facility] Administration Zolpidem Tartrate 10 mg 02/10/20 21:00 02/18/20 20:43 Zolpidem Tartrate 5 Mg Tablet PO 10 mg BEDTIME MARGARITA Administration Allergies Allergies Allergy/AdvReac Type Severity Reaction Status Date / Time haloperidol [From HALDOL] Allergy Unknown RASH Verified 02/08/20 17:26 morphine [MORPHINE] Allergy Unknown RASH Verified 02/08/20 20:43 Penicillins [PENICILLINS] Allergy Unknown RASH Verified 02/08/20 20:43 risperidone [From RISPERDAL] Allergy Unknown RASH Verified 02/08/20 20:43 From HALDOL Allergy Unknown RASH Uncoded 01/21/20 17:23 Assessment & Plan Assessment & Plan (1) Major depressive disorder, recurrent, severe w/o psychotic behavior: Status: Acute Code(s): F33.2 - Major depressive disorder, recurrent severe without psychotic features Assessment and Plan: med clerance for ect cont vilazadone abilify encourage oob coping skills (2) PTSD (post-traumatic stress disorder): Status: Acute Code(s): F43.10 - Post-traumatic stress disorder, unspecified Assessment and Plan: inc vilazadone 40 mg inc abilify 10 mg if not effective ect which has been helpful in the past Greater than 50% of the session was spent on counseling and/or coordination of care
[2020-02-19] MEDS: traZODone HCL 50 MG TABLET PO (01:19)
[2020-02-19] MEDS: ALPRAZolam 0.5 MG TABLET 1 MG PO ×4 (03:54→20:51)
[2020-02-19] MEDS: Acetaminophen 325 MG TABLET 650 MG PO (03:54)
[2020-02-19 06:15] VITALS: BP 102/57; PULSE 68; RESP 14; TEMP 35.9; O2SAT 99
[2020-02-19] MEDS: ARIPiprazole 10 MG TABLET PO (08:48)
[2020-02-19] MEDS: lamoTRIgine 100 MG TABLET PO ×2 (08:48→20:52)
[2020-02-19] MEDS: Vilazodone HCL 40 MG TABLET PO (08:48)
[2020-02-19] MEDS: busPIRone HCl 10 MG TABLET 30 MG PO ×2 (08:48→20:52)
[2020-02-19] MEDS: Baclofen 10 MG TABLET PO ×2 (08:48→20:52)
[2020-02-19 09:20] LABS: Alanine Aminotransferase 17 U/L (0-31); Albumin Level 3.6 g/dL (3.5-5.0); Alkaline Phosphatase 104 U/L (39-117); Anion Gap 9 (12-20); Aspartate Amino Transferase 37 U/L (5-31); Bilirubin Total < 0.2 mg/dL (0.0-1.0); Blood Urea Nitrogen 6 mg/dL (9-16); Carbon Dioxide 40 mmol/L (22-29); Chloride 92 mmol/L (96-108); Cholesterol 181 mg/dL; Creatinine Clr Calc Pharmacy 52.7; Estimated Glomerular Filt Rate > 60; Glucose Fasting 102 mg/dL (60-99); HDL Cholesterol 45 mg/dL; LDL Cholesterol Calculated 98 mg/dl; Potassium 3.3 mmol/l (3.3-5.1); Sodium 138 mmol/L (135-145); Total Protein 7.3 g/dL (6.5-8.0); Triglycerides 190 mg/dL
[2020-02-19 09:43] LABS: Reflex LDLD? No
--- NOTE | 2020-02-19 15:52 | HO.PSYCHPN ---
Subjective Subjective Reason For Visit: patient admitted increasingly depressed OD Subjective Notes: Conditional Voluntary Interim History: pt severely depressed withdrawn hopeless helpless asking about ect has had trials of citalopram seroquel wellbutrin prozac abilify vilazadone buspar lamictal Medication Compliance: Yes Side effects from medications: Yes Attending Groups: Intermittent Mental Status Exam Mental Status Exam Narrative: sad looking wearing hospital garb overwhelmed with medical issues Patient Appearance: Appropriate Patient Orientation: Person, Place and Time Level of Consciousness: Awake Patient Behavior: Appropriate, Passive, Anxious, Avoidant, Fatigued and Good Eye Contact Mood Description: Depressed, Anxious, Blunted and Apprehensive Affect Description: Depressed, Anxious, Blunted and Sad Patient Cognition Impaired: No Ability to Follow Directions: Good Speech Pattern: Clear Memory Description: Recent Impaired ( has blackout) Thought Content: positive for Suicidal Ideation (passive) Depressive Symptoms: Increased Anxiety Diagnostics Vital Signs (24Hr): Vital Signs - 24 hr 02/18/20 17:19 02/19/20 06:15 Temperature 97.5 F 96.7 F L Pulse Rate 84 68 Respiratory Rate 14 Blood Pressure 102/63 102/57 L Pulse Oximetry 99 Body Mass Index 17.4 Labs Results: 02/14/20 08:38 02/19/20 08:08 Labs: Laboratory Results - last 48 hr 02/16/20 02/19/20 Unknown 08:08 Sodium 138 Potassium 3.3 Chloride 92 L Carbon Dioxide 40 H* D Anion Gap 9 L BUN 6 L Creatinine 0.91 Estim Creat Clear Calc 52.7 Estimated GFR > 60 Fasting Glucose 102 H Calcium 9.0 Magnesium 2.0 Total Bilirubin < 0.2 AST 37 H D ALT 17 Alkaline Phosphatase 104 Total Protein 7.3 Albumin 3.6 Triglycerides 190 Cholesterol 181 LDL Cholesterol, Calc 98 HDL Cholesterol 45 D Stool Occult Blood NEG Medications Medications Current Medications Generic Name Dose Route Start Last Admin Trade Name Freq PRN Reason Stop Dose Admin Acetaminophen 650 mg 02/09/20 21:51 02/19/20 03:54 Acetaminophen 325 Mg Tablet PO 650 mg Q6H PRN Administration Headache/Pain Mild Scale (1-3) Al Hydroxide/Mg Hydroxide 30 ml 02/09/20 21:51 Magnesium Hydrox/Alum Hydrox 30 Ml Oral.Susp PO Q6H PRN Heartburn/Nausea Alprazolam 1 mg 02/11/20 20:56 02/19/20 03:54 Alprazolam 0.5 Mg Tablet PO 1 mg DAILY PRN Administration Anxiety Alprazolam 1 mg 02/15/20 21:30 02/19/20 14:33 Alprazolam 0.5 Mg Tablet PO 1 mg TID [facility] Administration Aripiprazole 10 mg 02/18/20 09:00 02/19/20 08:48 Aripiprazole 10 Mg Tablet PO 10 mg DAILY MARGARITA Administration Baclofen 10 mg 02/08/20 23:30 02/19/20 08:48 Baclofen 10 Mg Tablet PO 10 mg BID MARGARITA Administration Buspirone HCl 30 mg 02/10/20 09:00 02/19/20 08:48 Buspirone Hcl 10 Mg Tablet PO 30 mg BID [facility] Administration Cyanocobalamin 1,000 mcg 02/12/20 15:00 02/12/20 20:38 Cyanocobalamin (Vitamin B-12) 1,000 Mcg/Ml Vial IM 1,000 mcg Q7D [facility] Administration Docusate Sodium 100 mg 02/09/20 09:00 02/19/20 08:47 Docusate Sodium 100 Mg Capsule PO Not Given BID [facility] Ibuprofen 600 mg 02/13/20 10:13 Ibuprofen 600 Mg Tablet PO Q6H PRN Pain, Moderate (Pain Scale 4-6 Lamotrigine 100 mg 02/17/20 21:00 02/19/20 08:48 Lamotrigine 100 Mg Tablet PO 100 mg BID [facility] Administration Magnesium Hydroxide 30 ml 02/09/20 21:51 Milk Of Magnesia 30 Ml Oral.Susp PO DAILY PRN Constipation Psyllium Hydrophilic Mucilloid 3.4 gm 02/14/20 09:00 02/19/20 08:48 Psyllium Seed 3.4 Gm Powd.Pack PO Not Given DAILY [facility] Vilazodone HCl 40 mg 02/18/20 09:00 02/19/20 08:48 Vilazodone Hcl 40 Mg Tablet PO 40 mg DAILY [facility] Administration Zolpidem Tartrate 10 mg 02/10/20 21:00 02/18/20 20:43 Zolpidem Tartrate 5 Mg Tablet PO 10 mg BEDTIME MARGARITA Administration Allergies Allergies Allergy/AdvReac Type Severity Reaction Status Date / Time haloperidol [From HALDOL] Allergy Unknown RASH Verified 02/08/20 17:26 morphine [MORPHINE] Allergy Unknown RASH Verified 02/08/20 20:43 Penicillins [PENICILLINS] Allergy Unknown RASH Verified 02/08/20 20:43 risperidone [From RISPERDAL] Allergy Unknown RASH Verified 02/08/20 20:43 From HALDOL Allergy Unknown RASH Uncoded 01/21/20 17:23 Assessment & Plan Assessment & Plan (1) Major depressive disorder, recurrent, severe w/o psychotic behavior: Status: Acute Code(s): F33.2 - Major depressive disorder, recurrent severe without psychotic features Assessment and Plan: med clerance for ect cont vilazadone abilify encourage oob coping skills labs ekg some abn noted nephrology consult (2) PTSD (post-traumatic stress disorder): Status: Acute Code(s): F43.10 - Post-traumatic stress disorder, unspecified Assessment and Plan: vilazadone 40 mg inc abilify 10 mg if not effective ect which has been helpful in the past Greater than 50% of the session was spent on counseling and/or coordination of care
[2020-02-19] MEDS: Zolpidem Tartrate 5 MG TABLET 10 MG PO (20:52)
[2020-02-19 20:54] VITALS: BP 104/63; PULSE 70; TEMP 36.1
[2020-02-19] MEDS: Cyanocobalamin (Vitamin B-12) 1,000 MCG/ML VIAL 1000 MCG IM (21:38)
[2020-02-20] MEDS: ALPRAZolam 0.5 MG TABLET 1 MG PO ×4 (01:30→22:25)
[2020-02-20 06:30] VITALS: BP 96/57; PULSE 61; RESP 16; TEMP 37
[2020-02-20] MEDS: busPIRone HCl 10 MG TABLET 30 MG PO ×2 (09:09→22:25)
[2020-02-20] MEDS: Baclofen 10 MG TABLET PO ×2 (09:09→22:23)
[2020-02-20] MEDS: Vilazodone HCL 40 MG TABLET PO (09:09)
[2020-02-20] MEDS: lamoTRIgine 100 MG TABLET PO ×2 (09:09→22:23)
[2020-02-20] MEDS: ARIPiprazole 10 MG TABLET PO (09:11)
--- NOTE | 2020-02-20 09:27 | PC.NURSE ---
Pt submitted a 3-Day Notice on Saturday02/20/2020 up on Saturday02/24/2020.
--- NOTE | 2020-02-20 10:38 | P.CONNP_ITS ---
History of Present Illness Reason for Consult Consult date: 02/20/20 Reason for consult: elevated bicarbonate Chief Complaint Chief complaint: patient admitted increasingly depressed OD History of Present Illness Narrative: 49 y/o female with chronic, severe depression and normal renal function with progressively elevated serum bicarbonate over last several weeks. BMI 17 ? eating disorder. Denies any active n/v/d but poor po intake. No issues with high blood pressure, chronic low K or Mg. Very depressed. Remainder of 12 pt ROS obtained and otherwise negative. Review of Systems Gastrointestinal: Reports as per [facility] Past Medical History Medical History Acute Crohn's disease Alcohol use disorder Anemia Anorexia nervosa with bulimia Anxiety Cocaine use disorder, mild, abuse Crohn disease Depression Major depressive disorder, recurrent, severe w/o psychotic behavior Major depressive disorder, recurrent, severe with psychotic features PTSD (post-traumatic stress disorder) Shoulder abscess Functional capacity: independent ambulation Family History Family history: reviewed and not pertinent Surgical History Surgical History S/P left rotator cuff repair Social History Social History Household Members: None Housing: Apartment Do you presently have visiting nurse or other home services: Yes ( Yes for my dressing on LT shoulder) Smoking Status: Never smoker Smoked in Last 30 Days: No Use of substances other than those prescribed or required for medical reasons: Yes Substance Use Type: Crack/Cocaine Substance Use Frequency: Occasionally Last Used Substance: Just Prior to Admission Currently Displaying Signs/Symptoms of Drug Intoxication Withdrawal: No Any prior treatment program specific to substance use: Yes ( Treatment center in [facility] ) Have you been hit, kicked, punched, or otherwise hurt by someone within the past year? If so, by whom?: No Do you feel safe in your current relationship?: No Current Relationship Is there a partner from a previous relationship who is making you feel unsafe now?: No Are you made to feel afraid or neglected: No [facility] Practices: [employer]ism I would like a visit from a sewing supervisor Advance Directives: Yes ( my sister Delia ) Advance Directives Information Provided: No ( somewhere the information is signed ) Advance Directives on File: No Do you have thoughts of harming others: None Do you have a plan to hurt others: No Plan Recently lost weight without trying: No service: No Sexual orientation: Straight/Heterosexual Meds Allergies Allergy/AdvReac Type Severity Reaction Status Date / Time haloperidol [From HALDOL] Allergy Unknown RASH Verified 02/08/20 17:26 morphine [MORPHINE] Allergy Unknown RASH Verified 02/08/20 20:43 Penicillins [PENICILLINS] Allergy Unknown RASH Verified 02/08/20 20:43 risperidone [From RISPERDAL] Allergy Unknown RASH Verified 02/08/20 20:43 From HALDOL Allergy Unknown RASH Uncoded 01/21/20 17:23 Home Medications Medication Instructions Recorded Confirmed Type alprazolam 1 mg PO Q6H 02/08/20 02/08/20 History baclofen 10 mg PO BID 02/08/20 02/08/20 History buspirone 30 mg PO BID 02/08/20 02/08/20 History docusate sodium [Stool Softener] 100 mg PO BID 02/08/20 02/08/20 History fluoxetine 40 mg PO QAM 02/08/20 02/08/20 History lamotrigine 200 mg PO BID 02/08/20 02/08/20 History zolpidem 10 mg PO BEDTIME 02/08/20 02/08/20 History Physical Exam Vital Signs: Vital Signs Temp Pulse Resp BP 02/20/20 06:30 98.6 F 61 16 96/57 L 02/19/20 20:54 97.0 F 70 104/63 Body Mass Index 17.4 Const General: cooperative and tired appearing Nutritional Appearance: cachectic Orientation/consciousness: oriented to person, oriented to place and oriented to time HENMT Head: Yes normal to inspection Eyes General: appearance normal, both eyes and all related structures Neck Neck: Yes normal visual inspection Chest Chest palpation & inspection: normal inspection of the chest Resp Effort & Inspection: normal respiratory effort Cardio Jugular venous distension: no JVD Rhythm: regular rhythm GI Inspection: Yes normal to inspection Skin General skin exam: no rashes or lesions noted Neuro General: oriented to person, oriented to place and oriented to time Extrem General: Yes normal to inspection Psych Affect: Blunted affect present Results Lab Results Result Diagrams: 02/14/20 08:38 02/19/20 08:08 Lab results: Chemistry 02/19/20 08:08 Sodium 138 Potassium 3.3 Carbon Dioxide 40 H* D BUN 6 L Creatinine 0.91 Calcium 9.0 Assessment and Plan (1) Metabolic alkalosis: Status: Acute elevated bicarbonate without evidence of primary resp acidosis concerns. this is most c/w metabolic alkalosis. In setting of low K, this is secondary hyperaldosteronism (no HTN or edema) due to volume depletion state. - eval/rule out eating disorder - recommend IV normal saline (0.9%) 100 cc/hr for 2 liters - KCl replacement 40 mEq bid x 3 doses - repeat labs in am please (2) Major depression: Qualifiers: Active/Remission status: currently active Status: Acute defer to psychiatric mgmt
--- NOTE | 2020-02-20 11:24 | P.PNPSI_ITS ---
Subjective Subjective Reason For Visit: patient admitted increasingly depressed OD Interim History: patient somewhat less depressed hoping to not have ECT discussed possibility of TMS. Patient aware bicarb is increased may need IV fluids complains of diarrhea Mental Status Exam Mental Status Exam Narrative: sad looking wearing hospital garb overwhelmed with medical issues Patient Appearance: Appropriate Patient Orientation: Person, Place and Time Level of Consciousness: Awake Patient Behavior: Appropriate, Passive, Anxious, Avoidant, Fatigued and Good Eye Contact Mood Description: Depressed, Anxious, Blunted and Apprehensive Affect Description: Depressed, Anxious, Blunted and Sad Patient Cognition Impaired: No Ability to Follow Directions: Good Speech Pattern: Clear Memory Description: Recent Impaired ( has blackout) and Immediate Intact Hallucinations: None Thought Process: Intact Depressive Symptoms: Increased Anxiety and Difficulty Sleeping Judgement: Fair Judgement and Insight: at times patient has difficulty following directions Diagnostics Vital Signs (24Hr): Vital Signs - 24 hr 02/19/20 20:54 02/20/20 06:30 Temperature 97.0 F 98.6 F Pulse Rate 70 61 Respiratory Rate 16 Blood Pressure 104/63 96/57 L Body Mass Index 17.4 Labs Results: 02/14/20 08:38 02/21/20 17:09 Labs: Laboratory Results - last 48 hr 02/19/20 08:08 Sodium 138 Potassium 3.3 Chloride 92 L Carbon Dioxide 40 H* D Anion Gap 9 L BUN 6 L Creatinine 0.91 Estim Creat Clear Calc 52.7 Estimated GFR > 60 Fasting Glucose 102 H Calcium 9.0 Magnesium 2.0 Total Bilirubin < 0.2 AST 37 H D ALT 17 Alkaline Phosphatase 104 Total Protein 7.3 Albumin 3.6 Triglycerides 190 Cholesterol 181 LDL Cholesterol, Calc 98 HDL Cholesterol 45 D Medications Medications Current Medications Generic Name Dose Route Start Last Admin Trade Name Freq PRN Reason Stop Dose Admin Acetaminophen 650 mg 02/09/20 21:51 02/19/20 03:54 Acetaminophen 325 Mg Tablet PO 650 mg Q6H PRN Administration Headache/Pain Mild Scale (1-3) Al Hydroxide/Mg Hydroxide 30 ml 02/09/20 21:51 Magnesium Hydrox/Alum Hydrox 30 Ml Oral.Susp PO Q6H PRN Heartburn/Nausea Alprazolam 1 mg 02/11/20 20:56 02/20/20 01:30 Alprazolam 0.5 Mg Tablet PO 1 mg DAILY PRN Administration Anxiety Alprazolam 1 mg 02/15/20 21:30 02/20/20 09:12 Alprazolam 0.5 Mg Tablet PO 1 mg TID MARGARITA Administration Aripiprazole 10 mg 02/18/20 09:00 02/20/20 09:11 Aripiprazole 10 Mg Tablet PO 10 mg DAILY MARGARITA Administration Baclofen 10 mg 02/08/20 23:30 02/20/20 09:09 Baclofen 10 Mg Tablet PO 10 mg BID MARGARITA Administration Buspirone HCl 30 mg 02/10/20 09:00 02/20/20 09:09 Buspirone Hcl 10 Mg Tablet PO 30 mg BID MARGARITA Administration Cyanocobalamin 1,000 mcg 02/12/20 15:00 02/19/20 21:38 Cyanocobalamin (Vitamin B-12) 1,000 Mcg/Ml Vial IM 1,000 mcg Q7D MARGARITA Administration Docusate Sodium 100 mg 02/09/20 09:00 02/20/20 09:11 Docusate Sodium 100 Mg Capsule PO Not Given BID [facility] Sodium Chloride 1,000 mls @ 100 mls/hr 02/20/20 11:15 Ns IVCONT .Q10H [facility] Ibuprofen 600 mg 02/13/20 10:13 Ibuprofen 600 Mg Tablet PO Q6H PRN Pain, Moderate (Pain Scale 4-6 Lamotrigine 100 mg 02/17/20 21:00 02/20/20 09:09 Lamotrigine 100 Mg Tablet PO 100 mg BID [facility] Administration Magnesium Hydroxide 30 ml 02/09/20 21:51 Milk Of Magnesia 30 Ml Oral.Susp PO DAILY PRN Constipation Potassium Chloride 40 meq 02/20/20 11:15 Potassium Chloride 20 Meq Packet PO 02/21/20 14:00 BID [facility] Psyllium Hydrophilic Mucilloid 3.4 gm 02/14/20 09:00 02/20/20 09:12 Psyllium Seed 3.4 Gm Powd.Pack PO Not Given DAILY [facility] Vilazodone HCl 40 mg 02/18/20 09:00 02/20/20 09:09 Vilazodone Hcl 40 Mg Tablet PO 40 mg DAILY MARGARITA Administration Zolpidem Tartrate 10 mg 02/10/20 21:00 02/19/20 20:52 Zolpidem Tartrate 5 Mg Tablet PO 10 mg BEDTIME MARGARITA Administration Allergies Allergies Allergy/AdvReac Type Severity Reaction Status Date / Time haloperidol [From HALDOL] Allergy Unknown RASH Verified 02/08/20 17:26 morphine [MORPHINE] Allergy Unknown RASH Verified 02/08/20 20:43 Penicillins [PENICILLINS] Allergy Unknown RASH Verified 02/08/20 20:43 risperidone [From RISPERDAL] Allergy Unknown RASH Verified 02/08/20 20:43 From HALDOL Allergy Unknown RASH Uncoded 01/21/20 17:23 Assessment & Plan Assessment & Plan (1) Metabolic alkalosis: Status: Acute Code(s): E87.3 - Alkalosis Assessment and Plan: elevated bicarbonate without evidence of primary resp acidosis concerns. this is most c/w metabolic alkalosis. In setting of low K, this is secondary hyperaldosteronism (no HTN or edema) due to volume depletion state. - eval/rule out eating disorder - recommend IV normal saline (0.9%) 100 cc/hr for 2 liters - KCl replacement 40 mEq bid x 3 doses - repeat labs in am please (2) Major depression: Qualifiers: Active/Remission status: currently active Status: Acute Code(s): F32.9 - Major depressive disorder, single episode, unspecified Assessment and Plan: continue vilazodone and Abilify patient asking about possibility of not doing ECT Greater than 50% of the session was spent on counseling and/or coordination of care
[2020-02-20 13:00] VITALS: BP 98/58; PULSE 64; TEMP 36.2
[2020-02-20] MEDS: Acetaminophen 325 MG TABLET 650 MG PO (13:34)
[2020-02-20] MEDS: 0.9 % Sodium Chloride 1,000 ML 100 ML IVCONT (15:48)
[2020-02-20 21:49] LABS: Alanine Aminotransferase 18 U/L (0-31); Albumin Level 3.6 g/dL (3.5-5.0); Alkaline Phosphatase 97 U/L (39-117); Anion Gap 12 (12-20); Aspartate Amino Transferase 41 U/L (5-31); Blood Urea Nitrogen 10 mg/dL (9-16); Calcium 8.4 mg/dL (8.4-10.2); Carbon Dioxide 32 mmol/L (22-29); Chloride 98 mmol/L (96-108); Creatinine Clr Calc Pharmacy 61.7; Estimated Glomerular Filt Rate > 60; Glucose Random 88 mg/dL (60-115); Potassium 3.6 mmol/l (3.3-5.1); Sodium 138 mmol/L (135-145); Total Protein 7.2 g/dL (6.5-8.0)
[2020-02-20 21:59] LABS: Bilirubin Total < 0.2 mg/dL (0.0-1.0)
[2020-02-20] MEDS: Zolpidem Tartrate 5 MG TABLET 10 MG PO (22:23)
[2020-02-20 22:29] VITALS: BP 102/72; PULSE 68; TEMP 35.7
[2020-02-21] MEDS: ALPRAZolam 0.5 MG TABLET 1 MG PO ×4 (00:20→22:33)
[2020-02-21 06:43] VITALS: BP 101/59; PULSE 66; RESP 16; TEMP 36.4
--- NOTE | 2020-02-21 07:00 | ECG_ITS ---
Test Reason : PREOP ECT Blood Pressure : / mmHG Vent. Rate : 065 BPM Atrial Rate : 065 BPM P-R Int : 174 ms QRS Dur : 086 ms QT Int : 446 ms P-R-T Axes : -01 059 043 degrees QTc Int : 463 ms Normal sinus rhythm Normal ECG When compared with ECG of 18-FEB-2020 21:28, ST no longer depressed in Inferior leads Anterolateral leads Referred By: Izzy Thompson Electronically Signed By:RAGHAV MCHUGH MD
--- NOTE | 2020-02-21 07:28 | P.EN_ITS ---
Event Note Event Note: Patient seen yesterday. She was due to get remicade but had to be admitted for her psychitric issues. SHe is still having diarrhea, discussed work up with CTe and fecal мария. She prefers to wait to see her main GI Dr Veras at [facility] and get back on remicade at [facility]. Discussed short term use of steroids but understandably she is against this given her psych issues. Recommend using imodium or lomotil sparingly for diarrhea control, note recent c diff neg. Budesonide is another option but slower onset, still some systemic absorption as well. She is planned for d/c on Saturday. Discussed with Dr Vargas.
[2020-02-21] MEDS: Baclofen 10 MG TABLET PO ×2 (08:59→22:33)
[2020-02-21] MEDS: Vilazodone HCL 40 MG TABLET PO (09:00)
[2020-02-21] MEDS: busPIRone HCl 10 MG TABLET 30 MG PO ×2 (09:00→22:34)
[2020-02-21] MEDS: lamoTRIgine 100 MG TABLET PO (09:30)
[2020-02-21] MEDS: ARIPiprazole 10 MG TABLET PO (09:32)
[2020-02-21 17:50] LABS: Alanine Aminotransferase 17 U/L (0-31); Albumin Level 3.6 g/dL (3.5-5.0); Alkaline Phosphatase 102 U/L (39-117); Anion Gap 12 (12-20); Aspartate Amino Transferase 32 U/L (5-31); Bilirubin Total < 0.2 mg/dL (0.0-1.0); Blood Urea Nitrogen 8 mg/dL (9-16); Carbon Dioxide 29 mmol/L (22-29); Chloride 104 mmol/L (96-108); Creatinine Clr Calc Pharmacy 60.3; Estimated Glomerular Filt Rate > 60; Glucose Random 92 mg/dL (60-115); Potassium 4.2 mmol/l (3.3-5.1); Sodium 141 mmol/L (135-145); Total Protein 7.4 g/dL (6.5-8.0)
[2020-02-21] MEDS: Zolpidem Tartrate 5 MG TABLET 10 MG PO (22:33)
[2020-02-21] MEDS: lamoTRIgine 100 MG TABLET 200 MG PO (22:33)
--- NOTE | 2020-02-21 23:01 | P.PNPSI_ITS ---
Subjective Subjective Reason For Visit: patient admitted increasingly depressed OD Subjective Notes: Conditional Voluntary and 3 Day Interim History: patient somewhat less depressed hoping to not have ECT discussed possibility of TMS. Patient aware bicarb is increased may need more IV fluids complains of diarrhea Medication Compliance: Yes Mental Status Exam Mental Status Exam Narrative: sad looking wearing hospital garb overwhelmed with medical issues Patient Appearance: Appropriate Patient Orientation: Person, Place and Time Level of Consciousness: Awake Patient Behavior: Appropriate, Passive, Anxious, Avoidant, Fatigued and Good Eye Contact Mood Description: Depressed, Anxious, Blunted and Apprehensive Affect Description: Depressed, Anxious, Blunted and Sad Patient Cognition Impaired: No Ability to Follow Directions: Good Speech Pattern: Clear Memory Description: Recent Impaired ( has blackout) and Immediate Intact Diagnostics Vital Signs (24Hr): Vital Signs - 24 hr 02/21/20 06:43 Temperature 97.5 F Pulse Rate 66 Respiratory Rate 16 Blood Pressure 101/59 L Body Mass Index 17.4 Labs Results: 02/14/20 08:38 02/21/20 17:09 Labs: Laboratory Results - last 48 hr 02/20/20 02/21/20 21:05 17:09 Sodium 138 141 Potassium 3.6 4.2 Chloride 98 104 Carbon Dioxide 32 H 29 Anion Gap 12 12 BUN 10 D 8 L Creatinine 0.80 0.82 Estim Creat Clear Calc 61.7 60.3 Estimated GFR > 60 > 60 Random Glucose 88 92 Calcium 8.4 9.0 Total Bilirubin < 0.2 < 0.2 AST 41 H 32 H ALT 18 17 Alkaline Phosphatase 97 102 Total Protein 7.2 7.4 Albumin 3.6 3.6 Medications Medications Current Medications Generic Name Dose Route Start Last Admin Trade Name Freq PRN Reason Stop Dose Admin Acetaminophen 650 mg 02/09/20 21:51 02/20/20 13:34 Acetaminophen 325 Mg Tablet PO 650 mg Q6H PRN Administration Headache/Pain Mild Scale (1-3) Al Hydroxide/Mg Hydroxide 30 ml 02/09/20 21:51 Magnesium Hydrox/Alum Hydrox 30 Ml Oral.Susp PO Q6H PRN Heartburn/Nausea Alprazolam 1 mg 02/11/20 20:56 02/21/20 00:20 Alprazolam 0.5 Mg Tablet PO 1 mg DAILY PRN Administration Anxiety Alprazolam 1 mg 02/15/20 21:30 02/21/20 22:33 Alprazolam 0.5 Mg Tablet PO 1 mg TID MARGARITA Administration Aripiprazole 10 mg 02/18/20 09:00 02/21/20 09:32 Aripiprazole 10 Mg Tablet PO 10 mg DAILY MARGARTIA Administration Baclofen 10 mg 02/08/20 23:30 02/21/20 22:33 Baclofen 10 Mg Tablet PO 10 mg BID MARGARITA Administration Buspirone HCl 30 mg 02/10/20 09:00 02/21/20 22:34 Buspirone Hcl 10 Mg Tablet PO 30 mg BID MARGARITA Administration Cyanocobalamin 1,000 mcg 02/12/20 15:00 02/19/20 21:38 Cyanocobalamin (Vitamin B-12) 1,000 Mcg/Ml Vial IM 1,000 mcg Q7D [facility] Administration Docusate Sodium 100 mg 02/09/20 09:00 02/21/20 22:34 Docusate Sodium 100 Mg Capsule PO Not Given BID [facility] Ibuprofen 600 mg 02/13/20 10:13 Ibuprofen 600 Mg Tablet PO Q6H PRN Pain, Moderate (Pain Scale 4-6 Lamotrigine 200 mg 02/21/20 21:00 02/21/20 22:33 Lamotrigine 100 Mg Tablet PO 200 mg BID [facility] Administration Lidocaine HCl 1 appl 02/21/20 13:59 Lidocaine 4 % Cream Kit TOPICAL Q4H PRN Pain, Moderate (Pain Scale 4-6 Protocol Magnesium Hydroxide 30 ml 02/09/20 21:51 Milk Of Magnesia 30 Ml Oral.Susp PO DAILY PRN Constipation Psyllium Hydrophilic Mucilloid 3.4 gm 02/14/20 09:00 02/21/20 08:59 Psyllium Seed 3.4 Gm Powd.Pack PO 3.4 gm DAILY MARGARITA Administration Vilazodone HCl 40 mg 02/18/20 09:00 02/21/20 09:00 Vilazodone Hcl 40 Mg Tablet PO 40 mg DAILY MARGARITA Administration Zolpidem Tartrate 10 mg 02/20/20 21:00 02/21/20 22:33 Zolpidem Tartrate 5 Mg Tablet PO 10 mg BEDTIME MARGARITA Administration Allergies Allergies Allergy/AdvReac Type Severity Reaction Status Date / Time haloperidol [From HALDOL] Allergy Unknown RASH Verified 02/08/20 17:26 morphine [MORPHINE] Allergy Unknown RASH Verified 10/05/20 20:43 Penicillins [PENICILLINS] Allergy Unknown RASH Verified 02/08/20 20:43 risperidone [From RISPERDAL] Allergy Unknown RASH Verified 02/08/20 20:43 From HALDOL Allergy Unknown RASH Uncoded 01/21/20 17:23 Assessment & Plan Assessment & Plan (1) H/O cardiac conduction disorder: Status: Acute Code(s): Z86.79 - Personal history of other diseases of the circulatory system (2) Acute Crohn's disease: Status: Acute Code(s): K50.90 - Crohn's disease, unspecified, without complications (3) Major depressive disorder, recurrent, severe w/o psychotic behavior: Status: Acute Code(s): F33.2 - Major depressive disorder, recurrent severe without psychotic features (4) Rotator cuff arthropathy of left shoulder: Status: Acute Code(s): M12.812 - Other specific arthropathies, not elsewhere classified, left shoulder (5) PTSD (post-traumatic stress disorder): Status: Acute Code(s): F43.10 - Post-traumatic stress disorder, unspecified (6) Cocaine use disorder, mild, abuse: Status: Acute Code(s): F14.10 - Cocaine abuse, uncomplicated (7) Anorexia nervosa with bulimia: Status: Acute Code(s): F50.02 - Anorexia nervosa, binge eating/purging type (8) Metabolic alkalosis: Status: Acute Code(s): E87.3 - Alkalosis (9) Major depression: Qualifiers: Active/Remission status: currently active Status: Acute Code(s): F32.9 - Major depressive disorder, single episode, unspecified Assessment and Plan: elevated bicarbonate without evidence of primary resp acidosis concerns. this is most c/w metabolic alkalosis. In setting of low K, this is secondary hyperaldosteronism (no HTN or edema) due to volume depletion state. - eval/rule out eating disorder - recommend IV normal saline (0.9%) 100 cc/hr for 2 liters - KCl replacement 40 mEq bid x 3 doses - repeat labs in am please continue vilazodone and Abilify patient asking about possibility of not doing ECT consider tms pt feeling better mentally Greater than 50% of the session was spent on counseling and/or coordination of care
--- NOTE | 2020-02-21 23:10 | PC.NURSE ---
LAB RESULTS- Dr. Vargas notified of results of chem profile via tiger text.
--- NOTE | 2020-02-22 | XR_ITS ---
EXAMINATION: XR BILATERAL HIPS WITH AP PELVIS CLINICAL INFORMATION: Status post fall. COMPARISON: None TECHNIQUE: AP view of the pelvis and 2 views of each hip were obtained. FINDINGS: AP PELVIS: There is normal symmetry of bilateral hip joints and SI joints. No bony abnormality seen. The soft tissues are normal. RIGHT HIP: There is no visible acute fracture, dislocation or subluxation. No bony erosive changes seen. The soft tissues are normal. LEFT HIP: There is no visible acute fracture, dislocation or subluxation seen. No bony erosive changes. The soft tissues are normal. IMPRESSION: Unremarkable AP pelvis exam. Unremarkable bilateral hip exam.
[2020-02-22] MEDS: ALPRAZolam 0.5 MG TABLET 1 MG PO ×2 (01:35→05:33)
[2020-02-22] MEDS: Acetaminophen 325 MG TABLET 650 MG PO (01:36)
[2020-02-22 04:15] VITALS: BP 113/54; PULSE 66; RESP 18; TEMP 36; O2SAT 97
--- NOTE | 2020-02-22 05:01 | PC.NURSE ---
At approximately 0407, staff requested t/w to see patient due to patient reporting she fell. Upon entering pt's room, pt observed to ambulate from the bathroom while wincing. Erythema observed on bony prominence of the right hip. Pt denied hitting her head and denied dizziness. Pt reported 5/10 pain and history of falls. I'll be fine. Your really don't need to make a big deal about this. Pt reported tripping over her socks as cause of the fall. Pt advised to change positions slowly and to ask staff for assistance, if needed. VSS/ A&O X4. Nursing receiving and processing supervisor and hospitalist informed. Incident report filed.
[2020-02-22] MEDS: Ibuprofen 600 MG TABLET PO (05:34)
--- NOTE | 2020-02-22 07:38 | PM.EVENT ---
Event Note Event Note: Ask to this patient who had a fall. I saw and examined this patient in the presence of of female aid. This patient has been preveiously seen by the hospital team on more than one ocasion during this encounter. She alert and coherant and walked from her room to any difficulty and normal gait. She states that around a quarter to 5 she woke to go to the bathroom and tripped with loose sucks and landed on the right hip and was having pain that is killing me . A stat xray ordered but not yet done. Full Exam conducted including review of vitals Selected Entries 02/22/20 04:15 Temperature 96.8 F Pulse Rate 66 Respiratory Rate 18 Blood Pressure 113/54 L Constitutional Awake and Alert, No apparent distress Neck Supple, No lymphadenopathy Cardiovascular RRR, No M/R/G, S1 S2, No S3 S4, No pedal edema Respiratory Lungs clear, No respiratory distress Gastrointestinal Non tender, Non-distended Skin she has superficial bruse on the right hip are. Limited joint exam was unremarkable Neurological Alert & oriented x3 Psychological Appropriate affect A/P: 1. Mechanical Fall with hip injury -Stat Xray to rule Fracture or dislocation was unremarkable -NSAID or Tyelenol for pain.
[2020-02-22] MEDS: busPIRone HCl 10 MG TABLET 30 MG PO (10:11)
[2020-02-22] MEDS: Vilazodone HCL 40 MG TABLET PO (10:12)
[2020-02-22] MEDS: Baclofen 10 MG TABLET PO (10:12)
[2020-02-22] MEDS: lamoTRIgine 100 MG TABLET 200 MG PO (10:13)
[2020-02-22] MEDS: ARIPiprazole 10 MG TABLET PO (10:14)
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
== END 2020-02-22 14:00 | disposition home health service (06) | DRG 885 ==
LOC: HO.ED 19:26 → HO.PM5 02-09 19:29
PROVIDERS: Emergency Medicine; Internal Medicine Gastroenterology; Physician Assistant Medical; Admitting Provider Psychiatry & Neurology Psychiatry; Emergency Provider Emergency Medicine; PCP Nurse Practitioner Family; Visit Provider Psychiatry & Neurology Psychiatry
DX: F33.2 Major depressive disorder, recurrent severe without psychotic features (principal); R45.851 Suicidal ideations; F50.02 Anorexia nervosa, binge eating/purging type; K50.90 Crohn's disease, unspecified, without complications; E87.3 Alkalosis; F14.10 Cocaine abuse, uncomplicated; F43.10 Post-traumatic stress disorder, unspecified; M12.812 Other specific arthropathies, not elsewhere classified, left shoulder; D50.9 Iron deficiency anemia, unspecified; R94.31 Abnormal electrocardiogram [ECG] [EKG]; F10.10 Alcohol abuse, uncomplicated; Z91.5 Personal history of self-harm; Z20.828 Contact with and (suspected) exposure to other viral communicable diseases; Z88.0 Allergy status to penicillin; Z88.5 Allergy status to narcotic agent; Z79.899 Other long term (current) drug therapy
CPT/HCPCS: 36415; 73030; 73522; 76882; 80048; 80053; 80061; 80307; 80320; 82272; 82607; 82746; 83540; 83735; 84134; 84443; 84702; 85025; 86140; 87324; 87449; 87635; 89055; 90686; 93005; 99223; 99232; 99239; 99284; 99285; G0480; J1200